=== PATIENT | male | born 1940 | race Caucasian/White ===

== ENCOUNTER 2016-06-30 22:42 | Inpatient (IN) | payer MEDICAID, MEDICARE ==
[2016-06-30] MEDS ORDERED: ACETAMINOPHEN 325 MG TABLET PO STA (23:49)
[2016-06-30] MEDS ORDERED: ACETAMINOPHEN 325 MG TABLET PO ONE (23:54)
[2016-07-01] MEDS ORDERED: CEFEPIME 2 GM in SODIUM CHLORIDE 0.9% MINIBAG 100 ML IV STA (02:27)
[2016-07-01] MEDS ORDERED: VANCOMYCIN INJ 1 GM in SODIUM CHLORIDE 0.9% 250 ML IV STA (02:28)
[2016-07-01] MEDS ORDERED: PROCHLORPERAZINE 10 MG/2 ML VIAL IVP PRN (03:02)
[2016-07-01] MEDS: SODIUM CHLORIDE 0.9% 1,000 ML IV SCH ×2 (05:49→18:55)
[2016-07-01] MEDS: SODIUM CHLORIDE FLUSH 0.9% 10 ML SYRINGE IVP SCH ×3 (05:50→21:00)
[2016-07-01] MEDS: ACETAMINOPHEN 325 MG TABLET PO PRN ×4 (06:50→21:03)
[2016-07-01] MEDS: ALBUTEROL NEB 2.5 MG/3 ML INH PRN ×3 (07:15→21:15)
[2016-07-01] MEDS ORDERED: SULFAMETH/TRIMETH DS 800/160 MG TABLET PO SCH (09:00)
[2016-07-01] MEDS ORDERED: ENOXAPARIN 40 MG/0.4 ML SYRINGE SUBQ SCH (09:00)
[2016-07-01] MEDS: POLYETHYLENE GLYCOL 3350 17 GM PACKET PO SCH (09:48)
[2016-07-01] MEDS: FLUCONAZOLE 100 MG TABLET PO SCH (09:49)
[2016-07-01] MEDS: predniSONE 10 MG TABLET PO SCH (09:49)
[2016-07-01] MEDS: valACYclovir 500 MG TABLET PO SCH ×2 (09:49→20:20)
[2016-07-01] MEDS: SULFAMETH/TRIMETH DS 800/160 MG TABLET PO SCH (09:49)
[2016-07-01] MEDS: VANCOMYCIN INJ 1.75 GM in SODIUM CHLORIDE 0.9% 500 ML IV SCH ×2 (09:56→21:01)
[2016-07-01] MEDS ORDERED: VANCOMYCIN INJ 1.5 GM in SODIUM CHLORIDE 0.9% 500 ML IV SCH (12:00)
[2016-07-01] MEDS: CEFEPIME 2 GM in SODIUM CHLORIDE 0.9% MINIBAG 100 ML IV SCH ×2 (14:13→20:20)
[2016-07-01] MEDS ORDERED: VANCOMYCIN PER PHARMACY 1 GM in SODIUM CHLORIDE 0.9% 250 ML IV SCH (15:00)
[2016-07-01] MEDS ORDERED: METOPROLOL TARTRATE 50 MG TABLET PO SCH (16:00)
[2016-07-01] MEDS ORDERED: A & D OINTMENT 5 GM PACKET TOP ONE (18:00)
[2016-07-01] MEDS: ATENOLOL 25 MG TABLET PO SCH (20:19)
[2016-07-01] MEDS: FLUoxetine 10 MG CAPSULE PO SCH (20:19)
[2016-07-01] MEDS ORDERED: NON FORMULARY MED (Atenolol [Atenolol] 50 MG) PO SCH (21:00)
[2016-07-02] MEDS ORDERED: A & D OINTMENT 5 GM PACKET TOP PRN (00:50)
[2016-07-02] MEDS: ACETAMINOPHEN 325 MG TABLET PO PRN ×2 (01:05→07:09)
[2016-07-02] MEDS: ALBUTEROL NEB 2.5 MG/3 ML INH PRN ×5 (01:40→23:35)
[2016-07-02] MEDS: SODIUM CHLORIDE FLUSH 0.9% 10 ML SYRINGE IVP SCH ×3 (04:52→21:07)
[2016-07-02] MEDS: valACYclovir 500 MG TABLET PO SCH ×2 (08:21→21:05)
[2016-07-02] MEDS: predniSONE 10 MG TABLET PO SCH (08:21)
[2016-07-02] MEDS: CEFEPIME 2 GM in SODIUM CHLORIDE 0.9% MINIBAG 100 ML IV SCH ×2 (08:21→21:06)
[2016-07-02] MEDS: POLYETHYLENE GLYCOL 3350 17 GM PACKET PO SCH (08:21)
[2016-07-02] MEDS: FLUCONAZOLE 100 MG TABLET PO SCH (08:21)
[2016-07-02] MEDS: SULFAMETH/TRIMETH DS 800/160 MG TABLET PO SCH (08:21)
[2016-07-02] MEDS: VANCOMYCIN INJ 1.75 GM in SODIUM CHLORIDE 0.9% 500 ML IV SCH ×2 (10:09→21:46)
[2016-07-02] MEDS: ATENOLOL 25 MG TABLET PO SCH (21:05)
[2016-07-02] MEDS: FLUoxetine 10 MG CAPSULE PO SCH (21:05)
[2016-07-03] MEDS: SODIUM CHLORIDE FLUSH 0.9% 10 ML SYRINGE IVP PRN (00:46)
[2016-07-03] MEDS: SODIUM CHLORIDE FLUSH 0.9% 10 ML SYRINGE IVP SCH ×3 (06:08→21:54)
[2016-07-03] MEDS: CEFEPIME 2 GM in SODIUM CHLORIDE 0.9% MINIBAG 100 ML IV SCH ×2 (08:37→21:52)
[2016-07-03] MEDS: valACYclovir 500 MG TABLET PO SCH ×2 (08:37→21:53)
[2016-07-03] MEDS: FLUCONAZOLE 100 MG TABLET PO SCH (08:37)
[2016-07-03] MEDS: SULFAMETH/TRIMETH DS 800/160 MG TABLET PO SCH (08:38)
[2016-07-03] MEDS: predniSONE 10 MG TABLET PO SCH (08:40)
[2016-07-03] MEDS: POLYETHYLENE GLYCOL 3350 17 GM PACKET PO SCH (09:42)
[2016-07-03] MEDS: VANCOMYCIN INJ 1.75 GM in SODIUM CHLORIDE 0.9% 500 ML IV SCH (11:11)
[2016-07-03] MEDS: ALBUTEROL NEB 2.5 MG/3 ML INH PRN ×2 (11:45→17:15)
[2016-07-03] MEDS: FLUoxetine 10 MG CAPSULE PO SCH (21:53)
[2016-07-03] MEDS: ATENOLOL 25 MG TABLET PO SCH (21:53)
[2016-07-03] MEDS: ALPRAZolam 0.25 MG TABLET PO PRN (21:53)
[2016-07-03] MEDS: VANCOMYCIN INJ 2 GM in SODIUM CHLORIDE 0.9% 500 ML IV SCH (22:30)
[2016-07-04] MEDS: ALBUTEROL NEB 2.5 MG/3 ML INH PRN ×4 (04:50→23:55)
[2016-07-04] MEDS ORDERED: FUROSEMIDE 20 MG/2 ML VIAL IVP SCH (05:00)
[2016-07-04] MEDS: ACETAMINOPHEN 325 MG TABLET PO PRN (05:16)
[2016-07-04] MEDS: SODIUM CHLORIDE FLUSH 0.9% 10 ML SYRINGE IVP SCH ×3 (05:37→20:31)
[2016-07-04] MEDS: CEFEPIME 2 GM in SODIUM CHLORIDE 0.9% MINIBAG 100 ML IV SCH ×2 (09:12→20:30)
[2016-07-04] MEDS: predniSONE 10 MG TABLET PO SCH (09:13)
[2016-07-04] MEDS: FLUCONAZOLE 100 MG TABLET PO SCH (09:13)
[2016-07-04] MEDS: SULFAMETH/TRIMETH DS 800/160 MG TABLET PO SCH (09:13)
[2016-07-04] MEDS: POLYETHYLENE GLYCOL 3350 17 GM PACKET PO SCH (09:14)
[2016-07-04] MEDS: valACYclovir 500 MG TABLET PO SCH ×2 (09:14→20:30)
[2016-07-04] MEDS: FLUoxetine 10 MG CAPSULE PO SCH (20:30)
[2016-07-04] MEDS: ATENOLOL 25 MG TABLET PO SCH (20:30)
[2016-07-04] MEDS: ALPRAZolam 0.25 MG TABLET PO PRN (22:45)
[2016-07-04] MEDS: VANCOMYCIN INJ 2 GM in SODIUM CHLORIDE 0.9% 500 ML IV SCH (22:45)
[2016-07-05] MEDS: SODIUM CHLORIDE FLUSH 0.9% 10 ML SYRINGE IVP PRN (01:12)
[2016-07-05] MEDS: SODIUM CHLORIDE FLUSH 0.9% 10 ML SYRINGE IVP SCH ×3 (06:14→22:04)
[2016-07-05] MEDS: ALBUTEROL NEB 2.5 MG/3 ML INH PRN ×3 (07:35→22:00)
[2016-07-05] MEDS: predniSONE 10 MG TABLET PO SCH (08:49)
[2016-07-05] MEDS: FLUCONAZOLE 100 MG TABLET PO SCH (08:49)
[2016-07-05] MEDS: FUROSEMIDE 20 MG TABLET PO SCH (08:49)
[2016-07-05] MEDS: SULFAMETH/TRIMETH DS 800/160 MG TABLET PO SCH (08:49)
[2016-07-05] MEDS: valACYclovir 500 MG TABLET PO SCH ×2 (08:49→22:03)
[2016-07-05] MEDS: POLYETHYLENE GLYCOL 3350 17 GM PACKET PO SCH (08:50)
[2016-07-05] MEDS: CEFEPIME 2 GM in SODIUM CHLORIDE 0.9% MINIBAG 100 ML IV SCH ×2 (08:50→21:59)
[2016-07-05] MEDS: FUROSEMIDE 40 MG/4 ML VIAL IVP SCH (14:03)
[2016-07-05] MEDS: FLUoxetine 10 MG CAPSULE PO SCH (22:03)
[2016-07-05] MEDS: ATENOLOL 25 MG TABLET PO SCH (22:03)
[2016-07-05] MEDS: VANCOMYCIN INJ 2 GM in SODIUM CHLORIDE 0.9% 500 ML IV SCH (22:54)
[2016-07-06] MEDS: SODIUM CHLORIDE FLUSH 0.9% 10 ML SYRINGE IVP SCH ×3 (05:56→21:34)
[2016-07-06] MEDS: ALBUTEROL NEB 2.5 MG/3 ML INH PRN (07:10)
[2016-07-06] MEDS: CEFEPIME 2 GM in SODIUM CHLORIDE 0.9% MINIBAG 100 ML IV SCH ×2 (08:37→21:29)
[2016-07-06] MEDS: SULFAMETH/TRIMETH DS 800/160 MG TABLET PO SCH (08:42)
[2016-07-06] MEDS: FLUCONAZOLE 100 MG TABLET PO SCH (08:43)
[2016-07-06] MEDS: valACYclovir 500 MG TABLET PO SCH ×2 (08:43→21:29)
[2016-07-06] MEDS: predniSONE 10 MG TABLET PO SCH (08:43)
[2016-07-06] MEDS: FUROSEMIDE 20 MG TABLET PO SCH (08:44)
[2016-07-06] MEDS: POLYETHYLENE GLYCOL 3350 17 GM PACKET PO SCH (08:46)
[2016-07-06] MEDS: FUROSEMIDE 40 MG/4 ML VIAL IVP SCH (08:46)
[2016-07-06] MEDS: ACETAMINOPHEN 325 MG TABLET PO PRN (15:49)
[2016-07-06] MEDS: FLUoxetine 10 MG CAPSULE PO SCH (21:29)
[2016-07-06] MEDS: ATENOLOL 25 MG TABLET PO SCH (21:29)
[2016-07-06] MEDS: VANCOMYCIN INJ 2 GM in SODIUM CHLORIDE 0.9% 500 ML IV SCH (22:40)
[2016-07-07] MEDS: ALBUTEROL NEB 2.5 MG/3 ML INH PRN ×4 (01:10→20:55)
[2016-07-07] MEDS: HYDROcod/ACETAM 5/325 MG TABLET PO PRN ×2 (02:17→09:37)
[2016-07-07] MEDS: SODIUM CHLORIDE FLUSH 0.9% 10 ML SYRINGE IVP SCH ×3 (06:18→21:32)
[2016-07-07] MEDS: FUROSEMIDE 40 MG/4 ML VIAL IVP SCH (07:25)
[2016-07-07] MEDS: CEFEPIME 2 GM in SODIUM CHLORIDE 0.9% MINIBAG 100 ML IV SCH ×2 (09:29→20:49)
[2016-07-07] MEDS: POLYETHYLENE GLYCOL 3350 17 GM PACKET PO SCH (09:30)
[2016-07-07] MEDS: SULFAMETH/TRIMETH DS 800/160 MG TABLET PO SCH (09:32)
[2016-07-07] MEDS: predniSONE 10 MG TABLET PO SCH (09:32)
[2016-07-07] MEDS: FUROSEMIDE 20 MG TABLET PO SCH (09:33)
[2016-07-07] MEDS: FLUCONAZOLE 100 MG TABLET PO SCH (09:33)
[2016-07-07] MEDS: valACYclovir 500 MG TABLET PO SCH ×2 (09:33→20:49)
[2016-07-07] MEDS: FLUoxetine 10 MG CAPSULE PO SCH (20:49)
[2016-07-07] MEDS: ATENOLOL 25 MG TABLET PO SCH (20:49)
[2016-07-07] MEDS: VANCOMYCIN INJ 2 GM in SODIUM CHLORIDE 0.9% 500 ML IV SCH (21:32)
[2016-07-08] MEDS: HYDROcod/ACETAM 5/325 MG TABLET PO PRN ×3 (05:50→21:33)
[2016-07-08] MEDS: SODIUM CHLORIDE FLUSH 0.9% 10 ML SYRINGE IVP SCH ×3 (05:50→21:36)
[2016-07-08] MEDS: FUROSEMIDE 40 MG/4 ML VIAL IVP SCH (07:17)
[2016-07-08] MEDS: FUROSEMIDE 20 MG TABLET PO SCH (08:23)
[2016-07-08] MEDS: valACYclovir 500 MG TABLET PO SCH ×2 (08:24→21:33)
[2016-07-08] MEDS: SULFAMETH/TRIMETH DS 800/160 MG TABLET PO SCH (08:24)
[2016-07-08] MEDS: predniSONE 10 MG TABLET PO SCH (08:24)
[2016-07-08] MEDS: FLUCONAZOLE 100 MG TABLET PO SCH (08:24)
[2016-07-08] MEDS: POLYETHYLENE GLYCOL 3350 17 GM PACKET PO SCH (08:29)
[2016-07-08] MEDS: CEFEPIME 2 GM in SODIUM CHLORIDE 0.9% MINIBAG 100 ML IV SCH ×2 (08:31→21:29)
[2016-07-08] MEDS: ALBUTEROL NEB 2.5 MG/3 ML INH PRN (21:10)
[2016-07-08] MEDS: FLUoxetine 10 MG CAPSULE PO SCH (21:32)
[2016-07-08] MEDS: ATENOLOL 25 MG TABLET PO SCH (21:33)
[2016-07-08] MEDS: VANCOMYCIN INJ 2 GM in SODIUM CHLORIDE 0.9% 500 ML IV SCH (21:36)
[2016-07-09] MEDS: HYDROcod/ACETAM 5/325 MG TABLET PO PRN ×2 (04:09→16:34)
[2016-07-09] MEDS: SODIUM CHLORIDE FLUSH 0.9% 10 ML SYRINGE IVP SCH ×3 (06:23→23:14)
[2016-07-09] MEDS: CEFEPIME 2 GM in SODIUM CHLORIDE 0.9% MINIBAG 100 ML IV SCH ×2 (09:27→23:14)
[2016-07-09] MEDS: POLYETHYLENE GLYCOL 3350 17 GM PACKET PO SCH (09:29)
[2016-07-09] MEDS: predniSONE 10 MG TABLET PO SCH (09:30)
[2016-07-09] MEDS: FUROSEMIDE 20 MG TABLET PO SCH (09:30)
[2016-07-09] MEDS: FLUCONAZOLE 100 MG TABLET PO SCH (09:30)
[2016-07-09] MEDS: valACYclovir 500 MG TABLET PO SCH ×2 (09:31→22:17)
[2016-07-09] MEDS: SULFAMETH/TRIMETH DS 800/160 MG TABLET PO SCH (09:32)
[2016-07-09] MEDS: FUROSEMIDE 40 MG/4 ML VIAL IVP SCH (10:03)
[2016-07-09] MEDS: ALBUTEROL NEB 2.5 MG/3 ML INH PRN (20:16)
[2016-07-09] MEDS: FLUoxetine 10 MG CAPSULE PO SCH (22:17)
[2016-07-09] MEDS: ATENOLOL 25 MG TABLET PO SCH (22:17)
[2016-07-09] MEDS: VANCOMYCIN INJ 2 GM in SODIUM CHLORIDE 0.9% 500 ML IV SCH (23:54)
[2016-07-10] MEDS: POLYETHYLENE GLYCOL 3350 17 GM PACKET PO SCH (10:32)
[2016-07-10] MEDS: CEFEPIME 2 GM in SODIUM CHLORIDE 0.9% MINIBAG 100 ML IV SCH (10:34)
[2016-07-10] MEDS: SODIUM CHLORIDE FLUSH 0.9% 10 ML SYRINGE IVP SCH ×2 (10:35)
[2016-07-10] MEDS: FLUCONAZOLE 100 MG TABLET PO SCH (10:40)
[2016-07-10] MEDS: predniSONE 10 MG TABLET PO SCH (10:41)
[2016-07-10] MEDS: SULFAMETH/TRIMETH DS 800/160 MG TABLET PO SCH (10:41)
[2016-07-10] MEDS: valACYclovir 500 MG TABLET PO SCH (10:41)
[2016-07-10] MEDS: FUROSEMIDE 20 MG TABLET PO SCH (10:45)
[2016-07-10] MEDS: ACETAMINOPHEN 325 MG TABLET PO PRN (10:45)
[2016-07-10] MEDS: FUROSEMIDE 40 MG/4 ML VIAL IVP SCH (10:47)
== END 2016-07-10 12:30 | disposition home or self-care (01) | DRG 808 ==
PROC: 30233N1 Transfusion of Nonautologous Red Blood Cells into Peripheral Vein, Percutaneous Approach (ICD-10-PCS; principal; 2016-07-06)
DX: D70.9 Neutropenia, unspecified (principal); J18.9 Pneumonia, unspecified organism; I10 Essential (primary) hypertension; Z68.41 Body mass index [BMI] 40.0-44.9, adult; R50.81 Fever presenting with conditions classified elsewhere; Y95 Nosocomial condition; D46.21 Refractory anemia with excess of blasts 1; R60.0 Localized edema; I48.91 Unspecified atrial fibrillation; M25.531 Pain in right wrist; K11.21 Acute sialoadenitis; R09.02 Hypoxemia; D46.9 Myelodysplastic syndrome, unspecified; I49.9 Cardiac arrhythmia, unspecified; F41.0 Panic disorder [episodic paroxysmal anxiety]; F42.9 Obsessive-compulsive disorder, unspecified; F41.8 Other specified anxiety disorders; E66.01 Morbid (severe) obesity due to excess calories; G89.29 Other chronic pain; Z79.899 Other long term (current) drug therapy; Z87.891 Personal history of nicotine dependence; Z79.52 Long term (current) use of systemic steroids; Z79.2 Long term (current) use of antibiotics

== ENCOUNTER 2016-07-31 07:36 | Day surgery (SDC) | payer MEDICARE ==
[2016-07-31] MEDS ORDERED: LACTATED RINGERS 1,000 ML IV ONE (07:48)
[2016-07-31] MEDS ORDERED: LIDOCAINE 1% 50 ML MDV SUBQ ONE ×2 (12:33)
[2016-07-31] MEDS ORDERED: BUPIVACAINE 0.5% PF 30 ML VIAL SUBQ ONE ×2 (12:33)
[2016-07-31] MEDS ORDERED: PHENYLEPHRINE 50 MG/5 ML VIAL IV ONE (13:33)
[2016-07-31] MEDS ORDERED: MIDAZOLAM 2 MG/2 ML VIAL IVP ONE (13:33)
[2016-07-31] MEDS ORDERED: PROPOFOL 200 MG/20 ML VIAL IVP ONE (13:33)
[2016-07-31] MEDS ORDERED: METOCLOPRAMIDE 10 MG/2 ML VIAL IVP ONE (13:33)
[2016-07-31] MEDS ORDERED: LIDOCAINE-MPF 2% 5 ML VIAL IM ONE (13:33)
== END 2016-07-31 07:37 | disposition home or self-care (01) ==
PROC: 05HN33Z Insertion of Infusion Device into Left Internal Jugular Vein, Percutaneous Approach (ICD-10-PCS; 2016-07-31)
PROC: B514YZA Fluoroscopy of Left Jugular Veins using Other Contrast, Guidance (ICD-10-PCS; 2016-07-31)
PROC: 0JH63XZ Insertion of Tunneled Vascular Access Device into Chest Subcutaneous Tissue and Fascia, Percutaneous Approach (ICD-10-PCS; principal; 2016-07-31 08:45)
DX: D46.9 Myelodysplastic syndrome, unspecified (principal); Z88.5 Allergy status to narcotic agent; Z79.52 Long term (current) use of systemic steroids; Z87.891 Personal history of nicotine dependence; I11.0 Hypertensive heart disease with heart failure; I50.9 Heart failure, unspecified; E66.9 Obesity, unspecified; K21.9 Gastro-esophageal reflux disease without esophagitis
CPT/HCPCS: 36561; 71010; C1788; J7120

== ENCOUNTER 2016-08-04 18:54 | Inpatient (IN) | payer MEDICARE ==
[2016-08-04] MEDS ORDERED: SODIUM CHLORIDE 0.9% 1,000 ML IV ONE (19:17)
[2016-08-04] MEDS ORDERED: PIPERACILLIN/TAZOBACTAM 4.5 GM in SODIUM CHLORIDE 0.9% MINIBAG 100 ML IV STA (19:18)
[2016-08-04] MEDS ORDERED: VANCOMYCIN INJ 1 GM in SODIUM CHLORIDE 0.9% 250 ML IV STA (19:18)
[2016-08-04] MEDS ORDERED: ONDANSETRON 4 MG/2 ML VIAL IVP PRN (21:27)
[2016-08-04] MEDS ORDERED: ONDANSETRON ODT 4 MG TABLET TL PRN (21:27)
[2016-08-04] MEDS ORDERED: PROCHLORPERAZINE INJ 10 MG in SODIUM CHLORIDE 0.9% 50 ML IV PRN (21:32)
[2016-08-04] MEDS ORDERED: VANCOMYCIN 1 GM VIAL ONE (21:33)
[2016-08-04] MEDS ORDERED: VANCOMYCIN PER PHARMACY 1 GM in SODIUM CHLORIDE 0.9% 250 ML IV SCH (22:00)
[2016-08-04] MEDS: ACETAMINOPHEN 325 MG TABLET PO PRN (22:51)
[2016-08-04] MEDS ORDERED: VANCOMYCIN IV SCH (23:00)
[2016-08-04] MEDS ORDERED: SODIUM CHLORIDE 0.9% IV SCH (23:00)
[2016-08-04] MEDS: SODIUM CHLORIDE FLUSH 0.9% 10 ML SYRINGE IVP SCH (23:32)
[2016-08-05] MEDS: SODIUM CHLORIDE 0.9% 1,000 ML IV SCH ×3 (00:03→20:42)
[2016-08-05] MEDS: PIPERACILLIN/TAZOBACTAM 3.375 GM in SODIUM CHLORIDE 0.9% MINIBAG 100 ML IV SCH ×3 (01:35→12:42)
[2016-08-05] MEDS: SODIUM CHLORIDE FLUSH 0.9% 10 ML SYRINGE IVP SCH ×3 (07:09→20:49)
[2016-08-05] MEDS: POLYETHYLENE GLYCOL 3350 17 GM PACKET PO SCH (08:50)
[2016-08-05] MEDS: FLUCONAZOLE 100 MG TABLET PO SCH (08:51)
[2016-08-05] MEDS: FUROSEMIDE 20 MG TABLET PO SCH (08:51)
[2016-08-05] MEDS: VANCOMYCIN INJ 1 GM, VANCOMYCIN INJ 500 MG in SODIUM CHLORIDE 0.9% 500 ML IV SCH ×2 (08:52→20:42)
[2016-08-05] MEDS: valACYclovir 500 MG TABLET PO SCH ×2 (08:53→20:43)
[2016-08-05] MEDS: SULFAMETH/TRIMETH DS 800/160 MG TABLET PO SCH (12:41)
[2016-08-05] MEDS: ACETAMINOPHEN 325 MG TABLET PO PRN (16:33)
[2016-08-05] MEDS: ATENOLOL 25 MG TABLET PO SCH (20:43)
[2016-08-05] MEDS: FLUoxetine 10 MG CAPSULE PO SCH (20:43)
[2016-08-06] MEDS: HYDROmorphone 1 MG/ML SYRINGE IVP PRN ×3 (01:01→22:47)
[2016-08-06] MEDS: SODIUM CHLORIDE FLUSH 0.9% 10 ML SYRINGE IVP SCH ×3 (06:37→20:39)
[2016-08-06] MEDS: POLYETHYLENE GLYCOL 3350 17 GM PACKET PO SCH (08:47)
[2016-08-06] MEDS: FUROSEMIDE 20 MG TABLET PO SCH (08:48)
[2016-08-06] MEDS: SULFAMETH/TRIMETH DS 800/160 MG TABLET PO SCH (08:48)
[2016-08-06] MEDS: FLUCONAZOLE 100 MG TABLET PO SCH (08:48)
[2016-08-06] MEDS: valACYclovir 500 MG TABLET PO SCH ×2 (08:48→20:37)
[2016-08-06] MEDS: VANCOMYCIN INJ 1 GM, VANCOMYCIN INJ 500 MG in SODIUM CHLORIDE 0.9% 500 ML IV SCH ×2 (09:19→20:36)
[2016-08-06] MEDS: SODIUM CHLORIDE FLUSH 0.9% 10 ML SYRINGE IVP PRN (16:35)
[2016-08-06] MEDS: FLUoxetine 10 MG CAPSULE PO SCH (20:37)
[2016-08-06] MEDS: ATENOLOL 25 MG TABLET PO SCH (20:37)
[2016-08-07] MEDS: SODIUM CHLORIDE FLUSH 0.9% 10 ML SYRINGE IVP SCH ×3 (06:42→21:42)
[2016-08-07] MEDS: VANCOMYCIN INJ 1 GM, VANCOMYCIN INJ 500 MG in SODIUM CHLORIDE 0.9% 500 ML IV SCH ×2 (08:54→23:21)
[2016-08-07] MEDS: valACYclovir 500 MG TABLET PO SCH ×2 (08:58→21:42)
[2016-08-07] MEDS: SULFAMETH/TRIMETH DS 800/160 MG TABLET PO SCH (08:59)
[2016-08-07] MEDS: FLUCONAZOLE 100 MG TABLET PO SCH (08:59)
[2016-08-07] MEDS: POLYETHYLENE GLYCOL 3350 17 GM PACKET PO SCH (09:00)
[2016-08-07] MEDS: FUROSEMIDE 20 MG TABLET PO SCH (09:02)
[2016-08-07] MEDS: ACETAMINOPHEN 325 MG TABLET PO PRN (09:22)
[2016-08-07] MEDS: HYDROmorphone 1 MG/ML SYRINGE IVP PRN (09:23)
[2016-08-07] MEDS: SODIUM CHLORIDE FLUSH 0.9% 10 ML SYRINGE IVP PRN ×2 (09:25→23:21)
[2016-08-07] MEDS ORDERED: SODIUM CHLORIDE 0.9% 250 ML IV ONE (14:16)
[2016-08-07] MEDS: oxyCODONE 5 MG TABLET PO PRN ×2 (19:29→23:21)
[2016-08-07] MEDS: ATENOLOL 25 MG TABLET PO SCH (21:42)
[2016-08-07] MEDS: FLUoxetine 10 MG CAPSULE PO SCH (21:42)
[2016-08-08] MEDS: SODIUM CHLORIDE FLUSH 0.9% 10 ML SYRINGE IVP SCH ×3 (06:27→20:29)
[2016-08-08] MEDS ORDERED: BUFFERED LIDOCAINE 10 ML SYRINGE SUBQ STA (07:33)
[2016-08-08] MEDS: HYDROmorphone 1 MG/ML SYRINGE IVP PRN ×2 (08:31→15:45)
[2016-08-08] MEDS: SODIUM CHLORIDE FLUSH 0.9% 10 ML SYRINGE IVP PRN ×3 (08:31→20:29)
[2016-08-08] MEDS: VANCOMYCIN INJ 1 GM, VANCOMYCIN INJ 500 MG in SODIUM CHLORIDE 0.9% 500 ML IV SCH ×2 (09:22→20:29)
[2016-08-08] MEDS: FUROSEMIDE 20 MG TABLET PO SCH (09:28)
[2016-08-08] MEDS: FLUCONAZOLE 100 MG TABLET PO SCH (09:28)
[2016-08-08] MEDS: SULFAMETH/TRIMETH DS 800/160 MG TABLET PO SCH (09:28)
[2016-08-08] MEDS: valACYclovir 500 MG TABLET PO SCH ×2 (09:29→20:29)
[2016-08-08] MEDS: POLYETHYLENE GLYCOL 3350 17 GM PACKET PO SCH (09:48)
[2016-08-08] MEDS: oxyCODONE 5 MG TABLET PO PRN (14:26)
[2016-08-08] MEDS: ATENOLOL 25 MG TABLET PO SCH (20:29)
[2016-08-08] MEDS: FLUoxetine 10 MG CAPSULE PO SCH (20:29)
[2016-08-09] MEDS: ACETAMINOPHEN 325 MG TABLET PO PRN (01:25)
[2016-08-09] MEDS: HYDROmorphone 1 MG/ML SYRINGE IVP PRN ×2 (02:31→21:14)
[2016-08-09] MEDS: SODIUM CHLORIDE FLUSH 0.9% 10 ML SYRINGE IVP SCH ×3 (05:50→23:17)
[2016-08-09] MEDS: FUROSEMIDE 20 MG/2 ML VIAL IVP SCH (08:48)
[2016-08-09] MEDS: valACYclovir 500 MG TABLET PO SCH ×2 (08:52→21:14)
[2016-08-09] MEDS: FLUCONAZOLE 100 MG TABLET PO SCH (08:53)
[2016-08-09] MEDS: SULFAMETH/TRIMETH DS 800/160 MG TABLET PO SCH (08:53)
[2016-08-09] MEDS: VANCOMYCIN INJ 1 GM, VANCOMYCIN INJ 500 MG in SODIUM CHLORIDE 0.9% 500 ML IV SCH ×2 (08:54→21:16)
[2016-08-09] MEDS: POLYETHYLENE GLYCOL 3350 17 GM PACKET PO SCH (08:55)
[2016-08-09] MEDS: oxyCODONE 5 MG TABLET PO PRN (13:44)
[2016-08-09] MEDS: ATENOLOL 25 MG TABLET PO SCH (21:14)
[2016-08-09] MEDS: FLUoxetine 10 MG CAPSULE PO SCH (21:14)
[2016-08-10] MEDS: HYDROmorphone 1 MG/ML SYRINGE IVP PRN ×2 (00:01→21:30)
[2016-08-10] MEDS: SODIUM CHLORIDE FLUSH 0.9% 10 ML SYRINGE IVP SCH ×3 (06:59→20:36)
[2016-08-10] MEDS: FUROSEMIDE 20 MG/2 ML VIAL IVP SCH (09:08)
[2016-08-10] MEDS: VANCOMYCIN INJ 1 GM, VANCOMYCIN INJ 500 MG in SODIUM CHLORIDE 0.9% 500 ML IV SCH ×2 (09:08→20:36)
[2016-08-10] MEDS: FLUCONAZOLE 100 MG TABLET PO SCH (09:08)
[2016-08-10] MEDS: valACYclovir 500 MG TABLET PO SCH ×2 (09:08→20:36)
[2016-08-10] MEDS: SULFAMETH/TRIMETH DS 800/160 MG TABLET PO SCH (09:08)
[2016-08-10] MEDS: POLYETHYLENE GLYCOL 3350 17 GM PACKET PO SCH (09:09)
[2016-08-10] MEDS: SODIUM CHLORIDE FLUSH 0.9% 10 ML SYRINGE IVP PRN (09:10)
[2016-08-10] MEDS: FLUoxetine 10 MG CAPSULE PO SCH (20:34)
[2016-08-10] MEDS: ATENOLOL 25 MG TABLET PO SCH (20:35)
[2016-08-11] MEDS: SODIUM CHLORIDE FLUSH 0.9% 10 ML SYRINGE IVP SCH ×3 (06:04→21:04)
[2016-08-11] MEDS: PANTOPRAZOLE 40 MG TABLET PO SCH (06:04)
[2016-08-11] MEDS ORDERED: DOCUSATE SODIUM 250 MG CAPSULE PO SCH (09:00)
[2016-08-11] MEDS ORDERED: SENNA 8.6 MG TABLET PO SCH (09:00)
[2016-08-11] MEDS: FLUCONAZOLE 100 MG TABLET PO SCH (10:53)
[2016-08-11] MEDS: SULFAMETH/TRIMETH DS 800/160 MG TABLET PO SCH (10:54)
[2016-08-11] MEDS: valACYclovir 500 MG TABLET PO SCH ×2 (10:55→21:01)
[2016-08-11] MEDS: FUROSEMIDE 20 MG/2 ML VIAL IVP SCH (10:56)
[2016-08-11] MEDS: SODIUM CHLORIDE FLUSH 0.9% 10 ML SYRINGE IVP PRN ×3 (10:56→21:03)
[2016-08-11] MEDS: POLYETHYLENE GLYCOL 3350 17 GM PACKET PO SCH (11:51)
[2016-08-11] MEDS: oxyCODONE 5 MG TABLET PO PRN (12:02)
[2016-08-11] MEDS: ALPRAZolam 0.25 MG TABLET PO PRN (12:44)
[2016-08-11] MEDS: VANCOMYCIN INJ 1 GM, VANCOMYCIN INJ 500 MG in SODIUM CHLORIDE 0.9% 500 ML IV SCH ×2 (15:31→21:01)
[2016-08-11] MEDS: ATENOLOL 25 MG TABLET PO SCH (20:57)
[2016-08-11] MEDS: HYDROmorphone 1 MG/ML SYRINGE IVP PRN (20:57)
[2016-08-11] MEDS: FLUoxetine 10 MG CAPSULE PO SCH (21:01)
[2016-08-12] MEDS: SODIUM CHLORIDE FLUSH 0.9% 10 ML SYRINGE IVP SCH ×3 (06:35→21:57)
[2016-08-12] MEDS: PANTOPRAZOLE 40 MG TABLET PO SCH (06:35)
[2016-08-12] MEDS: SODIUM CHLORIDE FLUSH 0.9% 10 ML SYRINGE IVP PRN (06:38)
[2016-08-12] MEDS: VANCOMYCIN INJ 1 GM, VANCOMYCIN INJ 500 MG in SODIUM CHLORIDE 0.9% 500 ML IV SCH ×2 (08:47→20:39)
[2016-08-12] MEDS: FUROSEMIDE 20 MG/2 ML VIAL IVP SCH (08:48)
[2016-08-12] MEDS: SULFAMETH/TRIMETH DS 800/160 MG TABLET PO SCH (08:51)
[2016-08-12] MEDS: valACYclovir 500 MG TABLET PO SCH ×2 (08:51→20:39)
[2016-08-12] MEDS: FLUCONAZOLE 100 MG TABLET PO SCH (08:51)
[2016-08-12] MEDS: HYDROmorphone 1 MG/ML SYRINGE IVP PRN ×2 (10:35→20:39)
[2016-08-12] MEDS: ATENOLOL 25 MG TABLET PO SCH (20:36)
[2016-08-12] MEDS: FLUoxetine 10 MG CAPSULE PO SCH (20:39)
[2016-08-13] MEDS: PANTOPRAZOLE 40 MG TABLET PO SCH (05:27)
[2016-08-13] MEDS: HYDROmorphone 1 MG/ML SYRINGE IVP PRN ×2 (05:27→10:29)
[2016-08-13] MEDS: SODIUM CHLORIDE FLUSH 0.9% 10 ML SYRINGE IVP SCH ×3 (05:28→21:24)
[2016-08-13] MEDS: FUROSEMIDE 20 MG/2 ML VIAL IVP SCH (09:57)
[2016-08-13] MEDS: SULFAMETH/TRIMETH DS 800/160 MG TABLET PO SCH (09:57)
[2016-08-13] MEDS: valACYclovir 500 MG TABLET PO SCH ×2 (09:57→19:59)
[2016-08-13] MEDS: FLUCONAZOLE 100 MG TABLET PO SCH (09:57)
[2016-08-13] MEDS: FLUoxetine 10 MG CAPSULE PO SCH (19:59)
[2016-08-13] MEDS: HYDROcod/ACETAM 5/325 MG TABLET PO PRN (20:00)
[2016-08-13] MEDS: ATENOLOL 25 MG TABLET PO SCH (20:07)
[2016-08-13] MEDS ORDERED: HYDROmorphone 1 MG/ML SYRINGE IVP PRN (20:21)
[2016-08-13] MEDS ORDERED: ALTEPLASE 2 MG VIAL IC PRN (22:42)
[2016-08-14] MEDS: HYDROcod/ACETAM 5/325 MG TABLET PO PRN ×2 (01:01→09:54)
[2016-08-14] MEDS: SODIUM CHLORIDE FLUSH 0.9% 10 ML SYRINGE IVP PRN ×3 (02:00→11:41)
[2016-08-14] MEDS: SODIUM CHLORIDE FLUSH 0.9% 10 ML SYRINGE IVP SCH (06:31)
[2016-08-14] MEDS: PANTOPRAZOLE 40 MG TABLET PO SCH (06:32)
[2016-08-14] MEDS: SULFAMETH/TRIMETH DS 800/160 MG TABLET PO SCH (08:20)
[2016-08-14] MEDS: FUROSEMIDE 20 MG/2 ML VIAL IVP SCH (08:20)
[2016-08-14] MEDS: FLUCONAZOLE 100 MG TABLET PO SCH (08:20)
[2016-08-14] MEDS: valACYclovir 500 MG TABLET PO SCH (08:20)
[2016-08-14] MEDS ORDERED: VANCOMYCIN INJ 1 GM, VANCOMYCIN INJ 500 MG in SODIUM CHLORIDE 0.9% 500 ML IV SCH (09:00)
[2016-08-14] MEDS: ALPRAZolam 0.25 MG TABLET PO PRN (09:25)
== END 2016-08-14 12:02 | DRG 314 ==
PROC: 30233N1 Transfusion of Nonautologous Red Blood Cells into Peripheral Vein, Percutaneous Approach (ICD-10-PCS; 2016-08-07)
PROC: 02PY33Z Removal of Infusion Device from Great Vessel, Percutaneous Approach (ICD-10-PCS; 2016-08-08)
PROC: 0H94XZZ Drainage of Neck Skin, External Approach (ICD-10-PCS; 2016-08-10)
PROC: 02HV33Z Insertion of Infusion Device into Superior Vena Cava, Percutaneous Approach (ICD-10-PCS; principal; 2016-08-11)
DX: T80.211A Bloodstream infection due to central venous catheter, initial encounter (principal); J18.9 Pneumonia, unspecified organism; D46.9 Myelodysplastic syndrome, unspecified; L03.313 Cellulitis of chest wall; E66.9 Obesity, unspecified; Z95.828 Presence of other vascular implants and grafts; L03.221 Cellulitis of neck; Z68.41 Body mass index [BMI] 40.0-44.9, adult; B95.7 Other staphylococcus as the cause of diseases classified elsewhere; Y71.1 Therapeutic (nonsurgical) and rehabilitative cardiovascular devices associated with adverse incidents; Y84.8 Other medical procedures as the cause of abnormal reaction of the patient, or of later complication, without mention of misadventure at the time of the procedure; Z16.11 Resistance to penicillins; D70.9 Neutropenia, unspecified; R50.81 Fever presenting with conditions classified elsewhere; L23.1 Allergic contact dermatitis due to adhesives; D46.20 Refractory anemia with excess of blasts, unspecified; R09.02 Hypoxemia; I10 Essential (primary) hypertension; E66.01 Morbid (severe) obesity due to excess calories; I27.2 Other secondary pulmonary hypertension; G47.30 Sleep apnea, unspecified; I48.91 Unspecified atrial fibrillation; J44.9 Chronic obstructive pulmonary disease, unspecified; M19.92 Post-traumatic osteoarthritis, unspecified site; F41.0 Panic disorder [episodic paroxysmal anxiety]; F41.8 Other specified anxiety disorders; F42.9 Obsessive-compulsive disorder, unspecified; Y95 Nosocomial condition; Z66 Do not resuscitate; Z87.891 Personal history of nicotine dependence; Z79.899 Other long term (current) drug therapy; Z88.8 Allergy status to other drugs, medicaments and biological substances; Z91.81 History of falling; Z79.2 Long term (current) use of antibiotics

== ENCOUNTER 2016-11-29 09:54 | Outpatient (CLI) | payer MEDICARE, MEDICAID ==
--- NOTE | 2016-11-29 10:44 | XRAY Report ---
CHEST PA AND LATERAL: 11/29/2016 CLINICAL HISTORY: A 75-year-old male with continuous cough, denies blood in sputum. The patient also has pancytopenia. FINDINGS: The bony thorax demonstrates no significant abnormality. The heart and great vessels demonstrates borderline heart size with vascular calcification in the aor tic arch. A PICC line is seen in place with its tip in the superior vena cava. It enters the vascular system via the right antecubital vein. The pulmonary parenchyma demonstrates improvement as compared to prior CT exam from 08/05/2016. On th e prior CT exam, there were moderate-sized parenchymal densities within the right upper lobe, right l ower lobe and left upper lobe suggestive of potential infectious process. On today's exam, these opac ities are not apparent. There is some mild nonspecific interstitial parenchymal disease in the right lower lobe that may represent mild atelectasis. Secondary consideration is a mild pneumonia. There ar e circular densities seen superimposed over the left lower lobe that probably are artifacts and repre sent structures superimposed over this area. IMPRESSION: 1. BORDERLINE HEART SIZE. 2. PICC LINE IS NOTED IN PLACE WITH ITS TIP IN THE SUPERIOR VENA CAVA. 3. IMPROVEMENT IS NOTED IN THE LUNGS COMPARED TO PATIENT'S PRIOR CT EXAM OF 08/05/2016. THE PREVIO USLY NOTED BILATERAL MODERATE-SIZED LUNG OPACITIES ARE NOT EVIDENT. 4. MILD INTERSTITIAL PARENCHYMAL DISEASE IS SEEN IN THE RIGHT LOWER LOBE. THIS IS NONSPECIFIC. IT MAY REPRESENT MILD ATELECTASIS VERSUS A MILD BRONCHOPNEUMONIA. RECOMMEND CLINICAL CORRELATION. COMMENT: FAXED REPORT WAS SENT BY DR. GONZALEZ ON 11/29/2016 AT 10:30 AM. JOB #: [id number] EXT JOB #:[id number]
== END 2016-11-29 09:55 | disposition home or self-care (01) ==
LOC: DI 09:54
PROVIDERS: ATTEND Internal Medicine
DX: J98.4 Other disorders of lung (principal); D61.818 Other pancytopenia
CPT/HCPCS: 71020

== ENCOUNTER 2016-12-08 13:18 | Outpatient (CLI) | payer MEDICARE, MEDICAID | END 2016-12-08 13:19 | disposition home or self-care (01) | LOC: LAB 13:18 | PROVIDERS: ATTEND Ophthalmology | DX: H25.811 Combined forms of age-related cataract, right eye (principal) | CPT/HCPCS: 87640 ==

== ENCOUNTER 2016-12-14 08:19 | Day surgery (SDC) | payer OTHER ==
[2016-12-14] MEDS ORDERED: LACTATED RINGERS 500 ML IV ONE (08:26)
[2016-12-14] MEDS ORDERED: SODIUM CHLORIDE FLUSH 0.9% 10 ML SYRINGE IVP ONE (08:53)
[2016-12-14] MEDS ORDERED: PHENYLEPHRINE 2.5% OPHTH 2 ML DROPS OPTH ONE (08:55)
[2016-12-14] MEDS ORDERED: KETOROLAC 0.45% OPHTH DROPS OPTH ONE (08:55)
[2016-12-14] MEDS ORDERED: CYCLOPENTOLATE 1% OPHTH DROPS 2 ML OPTH ONE (08:55)
[2016-12-14] MEDS ORDERED: PROPARACAINE 0.5% OPHTH DROPS 15 ML OPTH ONE ×2 (08:55→09:55)
[2016-12-14] MEDS ORDERED: IPRATROPIUM/ALBUTEROL 3 ML NEB INH ONE (09:22)
[2016-12-14] MEDS ORDERED: BRIMONIDINE 0.2% OPHTH DROPS 5 ML ONE (09:25)
[2016-12-14] MEDS ORDERED: TIMOLOL 0.5% OPHTH DROPS ONE (09:25)
[2016-12-14] MEDS ORDERED: KETOROLAC 0.45% OPHTH DROPS ONE (09:25)
[2016-12-14] MEDS ORDERED: PROPARACAINE 0.5% OPHTH DROPS 15 ML ONE (09:26)
[2016-12-14] MEDS ORDERED: PHENYLEPHRINE 2.5% OPHTH 2 ML DROPS ONE (09:26)
[2016-12-14] MEDS ORDERED: CYCLOPENTOLATE 1% OPHTH DROPS 2 ML ONE (09:26)
[2016-12-14] MEDS ORDERED: TRYPAN BLUE 0.5 ML SYRINGE IO ONE ×2 (09:40→09:55)
[2016-12-14] MEDS ORDERED: MIDAZOLAM 2 MG/2 ML VIAL IVP ONE (09:50)
[2016-12-14] MEDS ORDERED: EPINEPHrine 1 MG/ML AMP IVP ONE (09:55)
[2016-12-14] MEDS ORDERED: CHONDR SULF/HYALURONATE SYRINGE IO ONE ×3 (09:55)
[2016-12-14] MEDS ORDERED: BRIMONIDINE 0.2% OPHTH DROPS 5 ML OPTH ONE (09:55)
[2016-12-14] MEDS ORDERED: BSS/LIDOCAINE/EPINEPHRINE 1 ML SYRINGE IO ONE (09:56)
[2016-12-14] MEDS ORDERED: TRIAMCIN/MOXIFLOX/VANCO 1 ML VIAL IO ONE (09:56)
[2016-12-14] MEDS ORDERED: ACETYLCHOLINE 20 MG/2 ML KIT IO ONE ×2 (10:24→10:25)
[2016-12-14 11:00] VITALS: BP 138/66
--- NOTE | 2016-12-14 13:11 | OPERATIVE REPORT ---
DATE OF SURGERY: 12/14/2016 00:00:00 PREOPERATIVE DIAGNOSIS: Visually significant cataract, right eye. This is his first cataract surgery. This was a complex surgery due to a small pupil requiring expansion with the Malyugin ring and the use of Trypan Blue to stain the capsule. POSTOPERATIVE DIAGNOSIS: Visually significant cataract, right eye. This is his first cataract surgery. This was a complex surgery due to a small pupil requiring expansion with the Malyugin ring and the use of Trypan Blue to stain the capsule. NAME OF PROCEDURE: Phacoemulsification and postoperative chamber intraocular lens implant, right eye. SURGEON: Damien Wilson MD ANESTHESIA: Monitored anesthesia care. COMPLICATIONS: Posterior capsular rupture about 80% [address] the way through phaco fragmentation of the very dense lens nucleus. There was minimal dry vitrectomy from a small amount of vitreous coming to the wound towards the end of the case. OPERATIVE INDICATIONS: This is a 76-year-old leonides with progressive vision loss in the right eye due to a mature brunescent nuclear cataract. Best corrected vision was light perception vision in the right eye. INDICATIONS FOR SURGERY: Overall decrease in vision, difficulty seeing the computer screen, difficulty reading, difficulty seeing the TV, inability to read street signs, inability to drive at night, difficulty with headlights from vehicles at night and difficulty with glare and bright lights in any situation. He was consented at length concerning risks and benefits of cataract surgery, after which he expressed a desire to proceed with surgery. OPERATIVE PROCEDURE: The patient was taken into OR #2 and placed under monitored anesthesia care. A surgical time-out was conducted confirming correct patient, correct procedure and correct surgical site. Of note, this is a very large man with myelodysplastic syndrome and on continuous O2 with a rather robust and steady cough, but was able to at least lie flat during surgery. He also has a very dense lens. He was given topical anesthesia and prepped and draped in the usual sterile fashion. The eye was entered at the 12 and 9 o' clock positions. Intracameral Shugarcaine was injected into the anterior chamber followed by Viscoat. A Malyugin ring was then inserted into the anterior chamber and engaged the pupil margin at 4 points to expand the pupil. Trypan Blue was then injected along the anterior capsule to stain the capsule for the capsulorrhexis. Once stained, the rest of the Trypan Blue was flushed out of the anterior chamber and more Viscoat was placed into the anterior chamber to refill the chamber. Once stained, a continuous tear curvilinear capsulorrhexis was performed through the anterior capsule. The nucleus was hydrodissected and phacoemulsified. Of note, lens fragmentation was very tedious as this was a very dense, calcified lens and required minute chops and phacoemulsification. With about 80% of this very hard nucleus phacoemulsified, there was a break in the posterior capsule. It was round and small. Vitreous was pushed back with copious viscoelastic and the rest of the nucleus was phacoemulsified. Since the hole was small and round in the posterior capsule, I filled the capsule with Provisc and injected a one-piece IOL. There was some difficulty with positioning the IOL and during positioning the IOL cocked over and started to head towards the retina, at which point I levitated the IOL into the anterior chamber using micrograspers. The IOL was cut in half using microscissors and removed from the anterior chamber. At this point I filled the sulcus with Provisc and injected a 3-piece IOL, which was 20.5 diopters, into the sulcus and positioned it in the sulcus. No vitreous presented up to this point. Miochol was injected into the anterior chamber to bring down the iris which came down nice and smoothly and round. Approximately 0.7 mL of a mixture of triamcinolone, moxifloxacin, vancomycin was injected subconjunctivally in the superior quadrant for infection and inflammation prophylaxis. I&A was used to evacuate the viscoelastic materials from the anterior chamber, at which point a small bit of vitreous did present at the pupil margin and engaged the phaco wound. A strand of it was cut with Vannas scissors and then the rest was pulled away from the wound with a cyclodialysis spatula. The pupil rounded up again. The eye was inflated under physiologic pressure using balanced salt solution and found to be water tight. The patient was taken from the operating room in good condition and given postoperative instructions and also informed of the posterior capsular rupture and the insertion of a sulcus 3-piece IOL versus the planned bagged 1-piece IOL. JOB #: [id number] EXT JOB #:[id number] [facility]
== END 2016-12-14 08:20 | disposition home or self-care (01) ==
LOC: SDS 08:19
PROVIDERS: ATTEND Ophthalmology
PROC: 08RJ3JZ Replacement of Right Lens with Synthetic Substitute, Percutaneous Approach (ICD-10-PCS; principal; 2016-12-14 09:30)
DX: H25.811 Combined forms of age-related cataract, right eye (principal); D46.9 Myelodysplastic syndrome, unspecified; I50.9 Heart failure, unspecified; E66.9 Obesity, unspecified; F32.9 Major depressive disorder, single episode, unspecified; F41.9 Anxiety disorder, unspecified; D61.818 Other pancytopenia; K21.9 Gastro-esophageal reflux disease without esophagitis; Z68.38 Body mass index [BMI] 38.0-38.9, adult
CPT/HCPCS: 66982; A9270; J3490; J7620; V2632

== ENCOUNTER 2017-01-10 08:56 | Outpatient (CLI) | payer OTHER | END 2017-01-10 08:57 | disposition critical access hospital (66) | LOC: EMS 08:56 | PROVIDERS: ATTEND Surgery | DX: R06.02 Shortness of breath (principal) | CPT/HCPCS: A0425; A0427 ==

== ENCOUNTER 2017-01-10 09:29 | Inpatient (IN) | payer OTHER ==
[2017-01-10] MEDS ORDERED: ALBUTEROL NEB 2.5 MG/3 ML INH STA (09:36)
--- NOTE | 2017-01-10 09:53 | ED Physician Documentation ---
History of Present Illness - Stated complaint Stated Complaint: SOA - Chief complaint Chief Complaint: Resp - Additonal information Additional information: hx from pt and EMS and EMR 76 male known myledysplasia, transfusion dependent, WBC runs about 2K, ANC about 400, plt approx 23K on prophylactic bactrim and acyclovir gets transfused approx q2wk also has home O2 dependent COPD no CHF has had 3 days of chest pain and inc soa which is his usual indication of needing transfusion no fever cough abd pain NVD or inc leg swelling was tachypneic zavala soa when EMS arrived and is much better after a duoneb tx Review of Systems Constitutional: denies: Fever, Chills Cardiac: reports: Chest pain / pressure Respiratory: reports: Dyspnea GI: denies: Abdominal Pain, Nausea, Bloody / black stool : denies: Dysuria Musculoskeletal: denies: Extremity swelling Neurologic: denies: Generalized weakness Endocrine: reports: Easy bruising / bleeding (low plt) Immunocompromised: reports: Immunocompromised (low ANC) PD PAST MEDICAL HISTORY - Past Medical History Past Medical History: Yes Cardiovascular: Hypertension, Arrhythmia Respiratory: Sleep apnea Neuro: None Endocrine/Autoimmune: None GI: GERD : Nocturia, Frequency HEENT: Glaucoma, Chronic hearing loss Psych: Anxiety, Post traumatic stress disorder Musculoskeletal: Osteoarthritis, Chronic back pain, Other Derm: None - Past Surgical History Past Surgical History: Yes General: Other Ortho: Other HEENT: Tonsil/Adenoidectomy - Present Medications Home Medications: Ambulatory Orders Medication Instructions Recorded Confirmed ALPRAZolam [Xanax] 0.25 mg PO BID 01/20/15 01/10/17 Furosemide [Lasix] 40 tab PO BID 07/12/15 01/10/17 Sulfamethoxazole/Trimethoprim 160 - 800 mg PO DAILY 02/03/16 01/10/17 [Bactrim Ds Tablet] Valacyclovir HCl [Valacyclovir] 500 mg PO BID 02/03/16 01/10/17 Atenolol [Tenormin] 50 mg PO QPM tablet 08/13/16 01/10/17 FLUoxetine [PROzac] 20 mg PO QPM capsule 08/13/16 01/10/17 Fluconazole [Diflucan] 100 mg PO DAILY tablet 08/13/16 01/10/17 Pantoprazole [Protonix] 40 mg PO QDAC tablet 08/13/16 01/10/17 Hydrocodone/Acetaminophen [[place] 1 tab ORAL BID PRN 08/18/16 01/10/17 5-325 Tablet] Prednisone 10 mg ORAL DAILY 08/18/16 01/10/17 Cholecalciferol [Vitamin D3] 5,000 unit PO DAILY 12/04/16 01/10/17 Folic Acid 0.4 mg PO DAILY 12/04/16 01/10/17 Senna [Senokot] 8.6 mg PO DAILY 12/04/16 01/10/17 Brimonidine Tartrate/Timolol 1 drops RIGHTEYE BID 01/10/17 01/10/17 [Combigan 0.2%-0.5% Eye Drops] Dorzolamide 2% Ophth Drops 1 drops EACHEYE TID 01/10/17 01/10/17 [Trusopt 2% Ophth Drops] Ipratropium/Albuterol Sulfate 3 ml IH BID PRN 01/10/17 01/10/17 [Iprat-Albut 0.5-3(2.5) mg/3 ml] Latanoprost [Latanoprost] 1 drops EACHEYE DAILY PM 01/10/17 01/10/17 - Allergies Allergies/Adverse Reactions: Allergies Allergy/AdvReac Type Severity Reaction Status Date / Time morphine Allergy Unknown Unknown Verified 08/04/16 19:06 niacin Allergy Unknown Unknown Verified 08/04/16 19:06 adhesive tape Allergy Hives Verified 08/04/16 19:06 diphenhydramine AdvReac Anxiety Verified 08/04/16 19:06 Bryn Pad Allergy Hives Uncoded 08/04/16 19:06 - Social History Does the pt smoke?: Yes Smoking Status: Former smoker Does the pt drink ETOH?: No Does the pt have substance abuse?: No - Immunizations Immunizations are current?: Yes - POLST Patient has POLST: No PD ED PE NORMAL - Vitals Vital signs reviewed: Yes - General General: Alert and oriented X 3 - HEENT HEENT: PERRL, Other (pale) - Cardiac Cardiac: RRR - Respiratory Respiratory: Other (shayy wheezing) - Abdomen Abdomen: Soft, Non tender - Derm Derm: Normal color - Extremities Extremities: No deformity, Other (shayy mod symmetrical edema) - Neuro Neuro: Alert and oriented X 3, No motor deficit, No sensory deficit Results - Vitals Vitals: Vital Signs - 24 hr 01/10/17 01/10/17 01/10/17 09:33 10:00 10:21 Temperature 36.5 C Heart Rate 108 H 109 H 109 H Respiratory 20 17 Rate Blood Pressure 103/82 H 101/59 L O2 Saturation 93 92 Oxygen O2 Source Nasal cannula - EKG (time done) 1027 Rate: Rate (enter#) (109) Rhythm: Sinus tachycardia [place]: Normal Intervals: RBBB Ischemia: ST depression, Other (diffusely) Compare to prior EKG: Other (RBB not new, ST depr is ) - Labs Labs: Laboratory Tests 01/10/17 01/10/17 01/10/17 09:55 09:55 09:55 WBC 1.2 L* RBC 1.60 L Hgb 4.7 L* Hct 14.2 L* MCV 88.7 MCH 29.2 MCHC 32.9 RDW 16.7 H Plt Count 5 L* MPV 8.0 Neut # 0.1 L* Lymph # 0.9 L [place] # 0.1 Eos # 0.0 Baso # 0.0 Absolute Nucleated RBC 0.00 Nucleated RBCs 0.3 Manual Slide Review Indicated Platelet Estimate DECREASED (<130,000) Platelet Morphology NORMAL APPEARANCE RBC Morph Micro Appear 1+ HYPOCHROMASIA PT 12.9 H INR 1.2 Sodium 136 Potassium 4.2 Chloride 93 L Carbon Dioxide 35 H Anion Gap 8.0 BUN 26 H Creatinine 1.0 Estimated GFR (MDRD) 73 L Glucose 161 H Calcium 9.3 Phosphorus Magnesium Troponin I B-Natriuretic Peptide Blood Type Antibody Screen Crossmatch 01/10/17 01/10/17 01/10/17 09:55 09:55 09:55 WBC RBC Hgb Hct MCV MCH MCHC RDW Plt Count MPV Neut # Lymph # [place] # Eos # Baso # Absolute Nucleated RBC Nucleated RBCs Manual Slide Review Platelet Estimate Platelet Morphology RBC Morph Micro Appear PT INR Sodium Potassium Chloride Carbon Dioxide Anion Gap BUN Creatinine Estimated GFR (MDRD) Glucose Calcium Phosphorus Magnesium Troponin I 0.05 B-Natriuretic Peptide 170 H Blood Type O POSITIVE Antibody Screen NEGATIVE Crossmatch 01/10/17 01/10/17 09:55 09:55 WBC RBC Hgb Hct MCV MCH MCHC RDW Plt Count MPV Neut # Lymph # [place] # Eos # Baso # Absolute Nucleated RBC Nucleated RBCs Manual Slide Review Platelet Estimate Platelet Morphology RBC Morph Micro Appear PT INR Sodium Potassium Chloride Carbon Dioxide Anion Gap BUN Creatinine Estimated GFR (MDRD) Glucose Calcium Phosphorus 4.0 Magnesium 1.6 L Troponin I B-Natriuretic Peptide Blood Type Cancelled Antibody Screen Cancelled Crossmatch See Detail - Rads (name of study) CXR Radiology: See rad report (cardiomegaly, inc perihilar reticular opacity, small effusions possible, suspicious for lung edema 2/2 CHF, PICC to mid SVC, no pneumo) PD MEDICAL DECISION MAKING - ED course ED course: profound pancytopenia with symptomatic anemia, also pulm edema on CXR which will complicate transfusions EKG with ST depr but trop neg after 3 days of sx will admit for transfusions of RBC and plt and possibly need for diuresis and echo [facility]: 1) this is not service connected 2) pt has medicare A 3) CT is full for these reasons pt can be admitted to [facility] Departure - Departure Disposition: 66 [facility] DC/Xfer Clinical Impression: Refractory anemia due to myelodysplastic syndrome, Pancytopenia Dyspnea Qualifiers: Dyspnea type: unspecified Qualified Code(s): R06.00 - Dyspnea, unspecified Condition: Fair Discharge Date/Time: 01/10/17 12:35
[2017-01-10] MEDS ORDERED: SODIUM CHLORIDE FLUSH 0.9% 10 ML SYRINGE IVP ONE (09:54)
[2017-01-10] MEDS ORDERED: ALBUTEROL NEB 2.5 MG/3 ML INH ONE (10:00)
[2017-01-10] MEDS ORDERED: ACETYLCYSTEINE 10% 30 ML VIAL INH ONE (10:00)
[2017-01-10 10:13] LABS: BASOPHILS % (AUTO) 0.7 %; EOSINOPHILS % (AUTO) 0.3 %; LYMPHOCYTES # (AUTO) 0.9 10^3/uL (1.5-3.5); LYMPHOCYTES % (AUTO) 79.9 %; MEAN CORPUSCULAR HEMOGLOBIN 29.2 pg (27.0-31.0); MEAN CORPUSCULAR HGB CONC 32.9 g/dL (32.0-36.0); MEAN CORPUSCULAR VOLUME 88.7 fL (80.0-94.0); MONOCYTES # (AUTO) 0.1 10^3/uL (0.0-1.0); MONOCYTES % (AUTO) 9.7 %; NEUTROPHILS % (AUTO) 9.4 %; NUCLEATED RED BLOOD CELLS AUTO 0.3 /100WBC; RED CELL DISTRIBUTION WIDTH 16.7 % (12.0-15.0); UNCORRECTED WHITE BLOOD COUNT 1.2 x10^3/uL
[2017-01-10 10:19] LABS: CALCIUM 9.3 mg/dL (8.5-10.3); POTASSIUM 4.2 mmol/L (3.5-5.0)
[2017-01-10 10:32] LABS: INR 1.2 (0.8-1.2); PT - PROTHROMBIN TIME 12.9 secs (9.9-12.6)
[2017-01-10 10:33] LABS: WHITE BLOOD COUNT 1.2 x10^3/uL (4.8-10.8)
--- NOTE | 2017-01-10 10:33 | XRAY Preliminary Report ---
Exam: XR Chest 1 View IMPRESSION: 1. There is cardiomegaly. 2. There is increased perihilar reticular opacity with diminished vascular clarity. Small effusions m ay be present. Findings are suspicious for lung edema secondary to heart failure. 3. Right approach PICC tip extends at least to the mid SVC. 4. No evidence of pneumothorax. [facility] SITE ID: [id number]
[2017-01-10 10:34] LABS: HCT - HEMATOCRIT 14.2 % (42.0-52.0); HGB - HEMOGLOBIN 4.7 g/dL (14.0-18.0); NEUTROPHILS # (AUTO) 0.1 10^3/uL (1.5-6.6)
--- NOTE | 2017-01-10 10:34 | XRAY Report ---
EXAM: CHEST RADIOGRAPHY EXAM DATE: 01/10/2017 09:53 AM. CLINICAL HISTORY: Chest pain COMPARISON: 11/29/2016, 08/05/2016:. TECHNIQUE: 1 view. FINDINGS: Lungs/Pleura: Plethoric pulmonary vasculature. There is increased opacity within the lungs. Small eff usions may be present. No evidence of pneumothorax. Mediastinum: There is cardiomegaly. Other: Right approach PICC tip extends at least the mid SVC. IMPRESSION: 1. There is cardiomegaly. 2. There is increased perihilar reticular opacity with diminished vascular clarity. Small effusions m ay be present. Findings are suspicious for lung edema secondary to heart failure. 3. Right approach PICC tip extends at least to the mid SVC. 4. No evidence of pneumothorax. [facility] Referring Provider Line: [phone] SITE ID: [id number]
[2017-01-10 10:52] LABS: PLATELET ESTIMATE, MANUAL DECREASED (<130,000) (NORMAL); PLATELET MORPHOLOGY NORMAL APPEARANCE (NORMAL)
[2017-01-10] MEDS ORDERED: ONDANSETRON 4 MG/2 ML VIAL IVP PRN (11:41)
[2017-01-10] MEDS ORDERED: SODIUM CHLORIDE 0.9% 100ML 100 ML IV ONE ×2 (14:07→18:41)
[2017-01-10] MEDS: ACETAMINOPHEN 325 MG TABLET PO PRN (14:16)
[2017-01-10] MEDS: SODIUM CHLORIDE FLUSH 0.9% 10 ML SYRINGE IVP SCH ×2 (14:17→23:11)
[2017-01-10] MEDS: ALPRAZolam 0.25 MG TABLET PO SCH ×2 (14:17→21:04)
[2017-01-10] MEDS: SODIUM CHLORIDE FLUSH 0.9% 10 ML SYRINGE IVP PRN (14:23)
[2017-01-10 14:53] LABS: MAGNESIUM 1.6 mg/dL (1.7-2.8)
[2017-01-10] MEDS: SODIUM CHLORIDE 0.9% 1,000 ML IV SCH (15:50)
[2017-01-10] MEDS: PANTOPRAZOLE 40 MG TABLET PO SCH (15:51)
[2017-01-10] MEDS: FUROSEMIDE 40 MG/4 ML VIAL IVP SCH (15:51)
[2017-01-10] MEDS: MAGNESIUM OXIDE 400 MG TABLET PO SCH ×2 (16:04→21:03)
[2017-01-10] MEDS: DORZOLAMIDE 2% OPHTH DROPS EACHEYE SCH ×2 (16:05→21:07)
[2017-01-10 16:16] LABS: BILIRUBIN,URINE NEGATIVE (NEGATIVE)
[2017-01-10 16:17] LABS: UA w/ MICROSCOPIC CHARGE YES
[2017-01-10 16:24] LABS: UR CULTURE IF IND NOT INDICATED; WBC,URINE 0-3 /HPF (0-3)
[2017-01-10] MEDS: IPRATROPIUM/ALBUTEROL 3 ML NEB INH PRN (16:48)
--- NOTE | 2017-01-10 18:21 | HISTORY & PHYSICAL EXAMINATION ---
DATE OF ADMISSION: 01/10/2017 CHIEF COMPLAINT: Weakness and shortness of breath. IDENTIFYING INFORMATION: The patient is primary source of history and appears cogent, consistent, and thorough, although he is quite repetitive emphasizing certain details with reiteration. The patient' s history is supplemented by the handoff from Dr. Springer, emergency department physician, as well as personal review of past medical records summarized below and data collected during this visit. The hoang pierce's interview and examination by this physician were also used in his evaluation and preparation of this document. HISTORY OF PRESENT ILLNESS: The patient says that he woke up this morning, was too weak to get out of bed, he knew something was wrong because his dog slept with him and it tends to do that when he is n ot feeling well, and does with his as well. He gave some examples. The patient has known myelodysplasia and has neutropenia, thrombocytopenia. He got recent chemotherap y last week of Dacogen. He was supposed to have a followup appointment today to have blood work and t ransfusions and he was unable to get out of bed to make it to his appointment today and his even tually called EMS and he was brought in to be evaluated in the emergency department. REVIEW OF SYSTEMS: He has had no fever or chills. No sore throat. He has had a cough, it is chronic. He has had no nausea, vomiting, no hematemesis. No melena. He has frequent urination, but no dysuria. He has the weakness as noted above. He also has easy bruising. The patient was susceptible to infect ions. The patient's rest of the complete review of systems is negative as queried except as noted in the HPI. PAST MEDICAL HISTORY: Remarkable for 1. Hypertension. 2. Arrhythmia. 3. Sleep apnea. 4. Hearing loss. 5. Glaucoma. 6. Anxiety. 7. PTSD. 8. Arthritis. 9. Chronic back pain. 10. Myelodysplastic disorder. 11. Chronic anemia with some transfusion dependence. 12. Chronic obstructive pulmonary disease and chronic respiratory failure, on oxygen at home. PAST SURGERIES: He has had tonsillectomy and adenoidectomy. ALLERGIES: 1. MORPHINE. 2. NIACIN. 3. ADHESIVE TAPE. 4. DIPHENHYDRAMINE. 5. GERIPOD. MEDICATIONS: 1. Xanax 0.25 b.i.d.. 2. Lasix 20 mg tabs. 2 tabs twice a day. 3. Septra-DS. 1 a day. 4. Valacyclovir 500 mg twice a day. 5. Atenolol 50 mg a day. 6. Prozac 20 mg a day. 7. Diflucan 100 mg a day. 8. Protonix 40 mg a day. 9. Hydrocodone/acetaminophen 5/325 mg 1 twice a day. 10. Prednisone 10 mg a day. 11. Vitamin D3 5000 units a day. 12. Folic acid 0.4 mg a day. 13. Senna 8.6 mg a day. PERSONAL AND SOCIAL HISTORY: The patient has a 09-efbg-cdmp smoking history, quit in 2016, used to dr ink heavily in his younger years, not had a drink since late . No illicit drug use. He lives wit h of over 51 years who also has chronic medical problems. The patient was in the and th kiet worked for [employer]. FAMILY HISTORY: Parents both in their 90s of natural causes. Has a brother with deafness, arthri tis. There are his children who have morbid obesity and rheumatoid arthritis. PHYSICAL EXAMINATION: VITAL SIGNS: 36.5, 108, 20, 103/82, O2 saturation 93% on 5 liters nasal cannula. The patient appears chronically ill, although well-developed, well nourished. EYES: EOMs within normal limits, PERRL, nonicteric. MOUTH AND THROAT: Fair dentition. No other pathology, particularly no signs of thrush. MOUTH: Pharynx. NECK: No thyromegaly. No JVD, no bruits appreciated. CHEST WALL: Nontender. Symmetric. HEART: Sinus rhythm and intermittent irregular rhythm for which the patient has been diagnosed with a trial fibrillation. LUNGS: A few dry crackles at bases. Fair air movement. ABDOMEN: Very thick abdominal wall, soft, nontender. No hepatosplenomegaly appreciated. RECTAL/GENITAL: Exam was not done. EXTREMITIES: 2+ edema above the knees. VASCULAR: No pulses posterior tibial palpated. No cyanosis. NEURO: Cognitive intact. Cranial nerves intact. Motor fair strength bilaterally. No focal deficits. LABORATORY DATA: He has a white count of 1.2, H and H are 4.7 and 14, the platelet count is 5. The pa tient's sodium 136, potassium 4.2, CO2 was 35, BUN 26, creatinine 1.0, glucose 161, calcium is 9.3, t roponin at 0.05. Chest x-ray shows cardiomegaly and some evidence of interstitial edema consistent with the . SUMMARY: This is a 76-year-old male with myelodysplasia, transfusion dependent, neutropenia, thromboc ytopenia, who also has chronic respiratory failure secondary to COPD who comes in to the hospital wit h acute shortness of breath and generalized weakness, found in the emergency department to have a sev ere anemia and thrombocytopenia, as well as hypoxia. DISCHARGE DIAGNOSES: 1. Severe anemia. 2. Severe thrombocytopenia. 3. Acute on chronic respiratory failure. 4. Myelodysplastic disorder, severe. 5. Obstructive sleep apnea. 6. Hypertension. 7. Post traumatic stress disorder. 8. Chronic pain. DISCUSSION/DECISION MAKIN. Severe anemia will be remediated with transfusions starting with 2 units. 2. For severe thrombocytopenia, he is not actively bleeding and since his platelets are below 10,000 he will get a transfusion of platelets today and potentially tomorrow. 3. Acute on chronic respiratory failure. He is getting breathing treatments and oxygen supplementatio n. Same breathing treatments with beta agonists and oxygen. This will be monitored and treated and du e diligence to return his oxygen supplementation to his baseline at 2 liters. 4. Myelodysplastic disorder. He will be followed by his oncologist at the [facility] clinic. 5. Obstructive sleep apnea will have no further treatment besides the oxygen supplementation. 6. The hypertension will be monitored. At this time he has low normal blood pressure, so no blood pre ssure medications will be used. 7. His PTSD will be treated with the Xanax. 8. Chronic pain. He will get his hydrocodone with acetaminophen. The patient also be placed in immuno compromised precautions given his ANC is below 500. The patient will also be monitored for possible f ever. HOSPITAL ISSUES: 1. HE IS FULL CODE which is reiterated in the ER that he wants everything done. 2. Venous thromboembolism prophylaxis, which is contraindicated given his severe thrombocytopenia. 3. Diet will be regular diet. 4. Activity will be assisted out of bed. 5. Tubes and lines. He will have his port used for labs, blood tests and medications. 6. Admission status: The patient is inpatient status due to the severity of his multiple life-threate ciara medical illnesses and the need for both diagnostic and therapeutic interventions will take at le ast 2 nights. 7. Length of stay which is estimated at 2 nights. 8. Disposition is expected to be home unless there is deterioration. JOB #: [id number] EXT JOB #:[id number]
[2017-01-10] MEDS: FLUoxetine 10 MG CAPSULE PO SCH (21:03)
[2017-01-10] MEDS: ATENOLOL 25 MG TABLET PO SCH (21:03)
[2017-01-10] MEDS: valACYclovir 500 MG TABLET PO SCH (21:04)
[2017-01-10] MEDS: LATANOPROST 0.005% OPHTH DROPS EACHEYE SCH (21:07)
[2017-01-10] MEDS: HYDROcod/ACETAM 5/325 MG TABLET PO PRN (23:15)
[2017-01-11] MEDS: IPRATROPIUM/ALBUTEROL 3 ML NEB INH PRN ×4 (05:03→23:09)
[2017-01-11] MEDS: DORZOLAMIDE 2% OPHTH DROPS EACHEYE SCH ×3 (05:18→21:38)
[2017-01-11] MEDS: FUROSEMIDE 40 MG/4 ML VIAL IVP SCH ×2 (05:18→14:19)
[2017-01-11] MEDS: PANTOPRAZOLE 40 MG TABLET PO SCH (05:19)
[2017-01-11] MEDS: SODIUM CHLORIDE FLUSH 0.9% 10 ML SYRINGE IVP PRN (05:19)
[2017-01-11] MEDS: SODIUM CHLORIDE FLUSH 0.9% 10 ML SYRINGE IVP SCH ×3 (05:19→23:03)
[2017-01-11 06:26] LABS: BASOPHILS % (AUTO) 0.8 %; EOSINOPHILS % (AUTO) 0.2 %; LYMPHOCYTES % (AUTO) 81.2 %; MEAN CORPUSCULAR HEMOGLOBIN 30.2 pg (27.0-31.0); MEAN CORPUSCULAR HGB CONC 34.3 g/dL (32.0-36.0); MEAN CORPUSCULAR VOLUME 87.9 fL (80.0-94.0); MEAN PLATELET VOLUME 8.1 fL (7.4-11.4); MONOCYTES % (AUTO) 8.1 %; NEUTROPHILS % (AUTO) 9.7 %; RED BLOOD COUNT 1.95 10^6/uL (4.70-6.10); RED CELL DISTRIBUTION WIDTH 15.6 % (12.0-15.0); UNCORRECTED WHITE BLOOD COUNT 1.4 x10^3/uL
[2017-01-11 06:33] LABS: ALBUMIN/GLOBULIN RATIO 0.7 (1.0-2.2); BILIRUBIN,TOTAL 0.7 mg/dL (0.2-1.0); CALCIUM 9.1 mg/dL (8.5-10.3); CREATININE 0.9 mg/dL (0.6-1.2); MAGNESIUM 1.7 mg/dL (1.7-2.8); PHOSPHORUS 3.9 mg/dL (2.5-4.6); POTASSIUM 4.6 mmol/L (3.5-5.0); TOTAL PROTEIN 6.8 g/dL (6.7-8.2)
[2017-01-11 06:34] LABS: WHITE BLOOD COUNT 1.4 x10^3/uL (4.8-10.8)
[2017-01-11 06:35] LABS: HCT - HEMATOCRIT 17.1 % (42.0-52.0); HGB - HEMOGLOBIN 5.9 g/dL (14.0-18.0)
[2017-01-11 06:37] LABS: BAND NEUTROPHILS % (MANUAL) 0 %
[2017-01-11 07:04] LABS: NEUTROPHILS % (MANUAL) 9 %; TOTAL CELLS COUNTED 100
[2017-01-11 07:05] LABS: LYMPHOCYTES % (MANUAL) 84 %; NP AUTO DIFFERENTIAL? YES; NP MAN DIFFERENTIAL? NO; PLATELET ESTIMATE, MANUAL DECREASED (<130,000) (NORMAL)
[2017-01-11] MEDS ORDERED: SODIUM CHLORIDE 0.9% 500 ML IV ONE (07:31)
[2017-01-11] MEDS: ACETAMINOPHEN 325 MG TABLET PO PRN (08:04)
[2017-01-11] MEDS: predniSONE 10 MG TABLET PO SCH (08:45)
[2017-01-11] MEDS: CHOLECALCIFEROL 5,000 UNIT CAPSULE PO SCH (08:45)
[2017-01-11] MEDS: SULFAMETH/TRIMETH DS 800/160 MG TABLET PO SCH (08:46)
[2017-01-11] MEDS: FLUCONAZOLE 100 MG TABLET PO SCH (08:47)
[2017-01-11] MEDS: valACYclovir 500 MG TABLET PO SCH ×2 (08:48→21:37)
[2017-01-11] MEDS: ALPRAZolam 0.25 MG TABLET PO SCH ×2 (08:48→21:35)
[2017-01-11] MEDS: SENNA 8.6 MG TABLET PO SCH (08:48)
[2017-01-11] MEDS ORDERED: FOLIC ACID 1 MG TABLET PO SCH (09:00)
[2017-01-11 16:35] LABS: HGB - HEMOGLOBIN 7.5 g/dL (14.0-18.0); MEAN CORPUSCULAR VOLUME 88.3 fL (80.0-94.0); RED BLOOD COUNT 2.5 10^6/uL (4.70-6.10); RED CELL DISTRIBUTION WIDTH 15.1 % (12.0-15.0)
[2017-01-11 16:49] LABS: WHITE BLOOD COUNT 0.7 x10^3/uL (4.8-10.8)
[2017-01-11] MEDS ORDERED: SODIUM CHLORIDE FLUSH 0.9% 10 ML SYRINGE IVP ONE (18:29)
[2017-01-11] MEDS: LATANOPROST 0.005% OPHTH DROPS EACHEYE SCH (21:36)
[2017-01-11] MEDS: FLUoxetine 10 MG CAPSULE PO SCH (21:36)
[2017-01-11] MEDS: SODIUM CHLORIDE 0.9% 1,000 ML IV SCH (21:39)
[2017-01-11] MEDS: ATENOLOL 25 MG TABLET PO SCH (21:42)
[2017-01-11] MEDS: HYDROcod/ACETAM 5/325 MG TABLET PO PRN (23:01)
[2017-01-12 06:25] LABS: BASOPHILS % (AUTO) 0.2 %; HCT - HEMATOCRIT 22.1 % (42.0-52.0); HGB - HEMOGLOBIN 7.5 g/dL (14.0-18.0); LYMPHOCYTES % (AUTO) 81.2 %; MEAN CORPUSCULAR HEMOGLOBIN 29.9 pg (27.0-31.0); MEAN CORPUSCULAR HGB CONC 34.1 g/dL (32.0-36.0); MEAN CORPUSCULAR VOLUME 87.8 fL (80.0-94.0); MONOCYTES % (AUTO) 10.9 %; NEUTROPHILS % (AUTO) 7.7 %; RED BLOOD COUNT 2.52 10^6/uL (4.70-6.10); RED CELL DISTRIBUTION WIDTH 15.2 % (12.0-15.0); UNCORRECTED WHITE BLOOD COUNT 1.2 x10^3/uL
[2017-01-12] MEDS: FUROSEMIDE 40 MG/4 ML VIAL IVP SCH (06:26)
[2017-01-12] MEDS: PANTOPRAZOLE 40 MG TABLET PO SCH (06:26)
[2017-01-12] MEDS: SODIUM CHLORIDE FLUSH 0.9% 10 ML SYRINGE IVP SCH (06:27)
[2017-01-12] MEDS: DORZOLAMIDE 2% OPHTH DROPS EACHEYE SCH (06:29)
[2017-01-12 06:30] LABS: MAGNESIUM 1.7 mg/dL (1.7-2.8); PHOSPHORUS 3.4 mg/dL (2.5-4.6)
[2017-01-12 06:34] LABS: WHITE BLOOD COUNT 1.2 x10^3/uL (4.8-10.8)
[2017-01-12 06:36] LABS: BAND NEUTROPHILS % (MANUAL) 0 %
[2017-01-12 06:51] LABS: NEUTROPHILS % (MANUAL) 8 %; TOTAL CELLS COUNTED 100
[2017-01-12 06:52] LABS: LYMPHOCYTES % (MANUAL) 88 %; NP AUTO DIFFERENTIAL? YES; NP MAN DIFFERENTIAL? NO; PLATELET ESTIMATE, MANUAL DECREASED (<130,000) (NORMAL)
[2017-01-12] MEDS ORDERED: MAGNESIUM OXIDE 400 MG TABLET PO SCH (07:00)
[2017-01-12] MEDS: IPRATROPIUM/ALBUTEROL 3 ML NEB INH PRN (07:40)
[2017-01-12] MEDS: SULFAMETH/TRIMETH DS 800/160 MG TABLET PO SCH (08:27)
[2017-01-12] MEDS: predniSONE 10 MG TABLET PO SCH (08:27)
[2017-01-12] MEDS: valACYclovir 500 MG TABLET PO SCH (08:27)
[2017-01-12] MEDS: ALPRAZolam 0.25 MG TABLET PO SCH (08:27)
[2017-01-12] MEDS: SODIUM CHLORIDE FLUSH 0.9% 10 ML SYRINGE IVP PRN (08:28)
[2017-01-12] MEDS: SENNA 8.6 MG TABLET PO SCH (08:28)
[2017-01-12] MEDS: CHOLECALCIFEROL 5,000 UNIT CAPSULE PO SCH (08:28)
[2017-01-12] MEDS: FLUCONAZOLE 100 MG TABLET PO SCH (08:28)
--- NOTE | 2017-01-12 08:28 | Discharge Plan ---
Discharge Plan Disposition: Home, Self Care Condition: Good Diet: Diabetic Activity Restrictions: Activity as Tolerated Shower Restrictions: Yes Driving Restrictions: Yes Weight Bearing: Full Weight Additional Instructions or Follow Up instructions: You need to be seen next Sunday at the [facility] [place]. Call for your appt time. Thank you, Dr. Payne No Smoking: If you smoke, Please STOP! Call for help. Follow-up with: Holger Guerrero MD [Primary Care Provider] - 4 Weeks
[2017-01-12 08:36] LABS: POTASSIUM 4.3 mmol/L (3.5-5.0)
[2017-01-12 08:56] VITALS: BP 120/83
--- NOTE | 2017-01-14 05:53 | PROVIDER PROGRESS NOTE ---
Subjective - Prog Note Date Prog Note Date: 01/11/17 Prog Note Time: 16:00 - Subjective Pt reports feeling: Improved (Late entry) Objective - Vital Signs/Intake & Output Reviewed Vital Signs: Yes Intake & Output: Intake & Output 01/11/17 01/12/17 01/13/17 01/14/17 23:59 23:59 23:59 23:59 Intake Total 4780 909 Output Total 3521 1640 Balance 1255 -741 - Objective General Appearance: positive: No acute distress, Alert Eyes Bilateral: positive: PERRL, EOMI ENT: positive: Pharynx nml, No signs of dehydration Neck: positive: Thyroid nml, No JVD Respiratory: positive: No respiratory distress, Rales Cardiovascular: positive: Regular rate & rhythm Abdomen: positive: Non-tender, Nml bowel sounds Neurologic/Psychiatric: positive: Oriented x3, CN's nml (2-12), Motor nml - Lab Results Fish Bones: 01/12/17 05:00 01/12/17 05:00 Assessment/Plan - Problem List (1) Neutropenia Impression: He has been neutropenic for months. He is not ususally this low. He has not had a fever. 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 Will give another unit of PRBCs. His platelets however, are up to 29K, higher than expected Will continue to monitor.
--- NOTE | 2017-01-16 12:05 | DISCHARGE SUMMARY ---
DATE OF ADMISSION: 01/10/2017 DATE OF DISCHARGE: 01/12/2017 PRIMARY CARE PHYSICIAN: Dr. Holger Guerrero ADMISSION DIAGNOSES 1. Severe anemia. 2. Severe thrombocytopenia. 3. Acute on chronic respiratory failure. 4. Myelodysplastic disorder, severe. 5. Obstructive sleep apnea. 6. Hypertension. 7. Post-traumatic stress disorder. 8. Chronic pain. DISCHARGE DIAGNOSES 1. Severe anemia, status post 5 units packed red cells with improvement. 2. Severe thrombocytopenia with improvement after platelet infusion. 3. Acute on chronic respiratory failure, resolved. 4. Myelodysplastic disorder, severe. 5. Obstructive sleep apnea. 6. Hypertension with fair control. 7. Post-traumatic stress disorder. 8. Chronic pain. SPECIAL PROCEDURES: None. CONSULTATIONS: None. HOSPITAL COURSE AND MANAGEMENT: The initial presentation, emergency department evaluation and hospita list's plans are well described in the History and Physical. See copy of same. SUMMARY: This is a 76-year-old male with myelodysplasia, transfusion-dependent, anemia, neutropenia, thrombocytopenia and also has chronic respiratory failure secondary to COPD who comes into the hospit al with acute shortness of breath and generalized weakness. He was found in the emergency department to have severe anemia and thrombocytopenia, as well as hypoxia. He was admitted. The patient received 2 units of packed red cells, another 2 units, and then a unit of platelets since his platelets were at 5000. The following morning, the patient had improvement in his symptoms as he had received 4 unit s over the course of the day and the night. The patient was only at 7.5 and 22, so he received anothe r unit of red cells. There was no further improvement however. The patient felt well and wanted to go home, and he was discharged home. PHYSICAL EXAMINATION VITAL SIGNS: On the day of discharge, temperature 37.0, pulse 102, blood pressure 102/83, 16 and 93% on 2 L, which is his home O2. EYES: The patient's eyes EOMI within normal limits, PERRL, nonicteric. MOUTH AND THROAT: Moist mucous membranes. No other pathology noted. NECK: Supple. Nontender. No lymphadenopathy. CHEST: Normal sinus rhythm. No murmur, rubs, clicks. LUNGS: Have scattered, dry rales. Fair air movement. ABDOMEN: Thick abdominal wall, soft, nontender. RECTAL/GENITAL: No rectal exam done. EXTREMITIES: Have 2+ edema and stasis dermatitis. NEUROLOGICAL: Cognitive intact. Cranial nerves intact. Motor intact. LABORATORY DATA: On the day of discharge, he had a white count of 1.2, 7.5 and 22.1 hemoglobin and he matocrit with 17,000 platelets. His absolute neutrophil count was 0.1. The patient's sodium 137, pota ssium 4.6, chloride 104, CO2 is 37, BUN 23, creatinine 0.9, and his glucose is 119, calcium at 9.1. ALLERGIES HE HAS ALLERGIES TO 1. MORPHINE. 2. NIACIN. 3. ADHESIVE TAPE. 4. DIPHENHYDRAMINE. HOME MEDICATIONS Are 1. Combigan 1 drop right eye twice a day. 2. IPRAT-ALBT 3 mL inhaled b.i.d. 3. Latanoprost 1 drop each eye daily at night. 4. Trusopt 1 drop each eye 3 times a day. 5. Lasix 40 mg b.i.d. 6. Xanax 0.25 b.i.d. 7. Senna 8.6 daily. 8. [place] 1 tab b.i.d. that is 5/325. 9. Folic acid 0.4 daily. 10. Diflucan 100 mg daily. 11. Prozac 20 mg q.p.m. 12. Vitamin D3, 5000 units daily. 13. Tenormin 50 q.p.m. 14. Prednisone 10 mg oral daily. 15. Protonix 40 mg daily. 16. Valacyclovir 500 mg b.i.d. 17. Sulfa-trimethoprim 1 pill twice a week, Sunday and . The patient is to follow up with the [facility] clinic next Sunday to get blood draw and be seen by his onc ologist the following day. He to get bone marrow on the . Time spent in discharge activities, collaborating with case management, social work, nursing and wilfred ent education is 35 minutes. Patient was examined on the day of discharge. JOB #: [id number] EXT JOB #:[id number]
== END 2017-01-12 09:15 | disposition home or self-care (01) | DRG 811 ==
LOC: EDUNIT# → ED 09:29 → ICU 11:41
PROVIDERS: ADMIT Internal Medicine; ATTEND Internal Medicine
PROC: 30233N1 Transfusion of Nonautologous Red Blood Cells into Peripheral Vein, Percutaneous Approach (ICD-10-PCS; principal; 2017-01-10)
PROC: 30233R1 Transfusion of Nonautologous Platelets into Peripheral Vein, Percutaneous Approach (ICD-10-PCS; 2017-01-10)
DX: D46.4 Refractory anemia, unspecified (principal); J96.21 Acute and chronic respiratory failure with hypoxia; J44.9 Chronic obstructive pulmonary disease, unspecified; G47.33 Obstructive sleep apnea (adult) (pediatric); I11.9 Hypertensive heart disease without heart failure; I48.91 Unspecified atrial fibrillation; F43.10 Post-traumatic stress disorder, unspecified; G89.29 Other chronic pain; M54.9 Dorsalgia, unspecified; Z79.899 Other long term (current) drug therapy; Z99.81 Dependence on supplemental oxygen; Z79.2 Long term (current) use of antibiotics; Z79.891 Long term (current) use of opiate analgesic; Z79.52 Long term (current) use of systemic steroids; Z87.891 Personal history of nicotine dependence; Z95.828 Presence of other vascular implants and grafts
CPT/HCPCS: 36415; 71010; 80048; 80053; 81001; 81003; 82040; 82310; 83735; 83880; 84100; 84132; 84484; 85025; 85610; 86850; 86900; 86901; 86902; 86922; 87086; 87150; 93005; 94640; 94664; 99284

== ENCOUNTER 2017-01-29 12:38 | Outpatient (CLI) | payer OTHER | END 2017-01-29 12:39 | disposition critical access hospital (66) | LOC: EMS 12:38 | PROVIDERS: ATTEND Surgery | DX: S01.21XA Laceration without foreign body of nose, initial encounter (principal); R29.6 Repeated falls; R42 Dizziness and giddiness; R53.1 Weakness; W18.30XA Fall on same level, unspecified, initial encounter; Y92.008 Other place in unspecified non-institutional (private) residence as the place of occurrence of the external cause | CPT/HCPCS: A0425; A0429 ==

== ENCOUNTER 2017-01-29 13:12 | Inpatient (IN) | payer OTHER ==
--- NOTE | 2017-01-29 13:18 | ED Physician Documentation ---
PD HPI Fall - Stated complaint Stated Complaint: GLF - History obtained from History obtained from: Patient, EMS - History of Present Illness Mechanism of injury: Other (he felt weak and that legs gave out when he was getting up to go to bathroom. He was feeling weak and fell yesterday as well. No URI symptoms. Today with the fall, he fell forward right, despite walker, and struck right chest and face. Had bloody nose for several minutes. No noted LOC.) Fall distance: Standing position Where injury occurred: Home Timing - onset: Today Injury(ies) location: Face, Chest Quality of pain: Throbbing, Aching (face around nose) Associated symptoms: Weakness (generalized). No: LOC, Nausea / vomiting Worsens with: Other (standing up and walking, feeling generally weak.) Contributing factors: No: Anticoagulated Similar symptoms before: Diagnosis (has felt this way with low blood count post chemo in the past.) Recently seen: Clinic [place] [facility] Review of Systems Constitutional: denies: Fever, Chills, Myalgias Nose: denies: Rhinorrhea / runny nose, Congestion Throat: denies: Sore throat Cardiac: denies: Chest pain / pressure Respiratory: reports: Dyspnea. denies: Cough GI: denies: Abdominal Pain, Nausea, Vomiting, Diarrhea : denies: Dysuria, Frequency PD PAST MEDICAL HISTORY - Past Medical History Cardiovascular: Hypertension, Arrhythmia Respiratory: Sleep apnea Neuro: None Endocrine/Autoimmune: None, Other (MDS, chemo regularly) GI: GERD : Nocturia, Frequency HEENT: Glaucoma, Chronic hearing loss Psych: Anxiety, Post traumatic stress disorder Musculoskeletal: Osteoarthritis, Chronic back pain, Other Derm: None - Past Surgical History Past Surgical History: Yes General: Other Ortho: Other HEENT: Tonsil/Adenoidectomy - Present Medications Home Medications: Ambulatory Orders Medication Instructions Recorded Confirmed ALPRAZolam [Xanax] 0.25 mg PO BID 01/20/15 01/10/17 Furosemide [Lasix] 40 tab PO BID 07/12/15 01/10/17 Sulfamethoxazole/Trimethoprim 160 - 800 mg PO DAILY 02/03/16 01/10/17 [Bactrim Ds Tablet] Valacyclovir HCl [Valacyclovir] 500 mg PO BID 02/03/16 01/10/17 Atenolol [Tenormin] 50 mg PO QPM tablet 08/13/16 01/10/17 FLUoxetine [PROzac] 20 mg PO QPM capsule 08/13/16 01/10/17 Fluconazole [Diflucan] 100 mg PO DAILY tablet 08/13/16 01/10/17 Pantoprazole [Protonix] 40 mg PO QDAC tablet 08/13/16 01/10/17 Hydrocodone/Acetaminophen [[place] 1 tab ORAL BID PRN 08/18/16 01/10/17 5-325 Tablet] Prednisone 10 mg ORAL DAILY 08/18/16 01/10/17 Cholecalciferol [Vitamin D3] 5,000 unit PO DAILY 12/04/16 01/10/17 Folic Acid 0.4 mg PO DAILY 12/04/16 01/10/17 Senna [Senokot] 8.6 mg PO DAILY 12/04/16 01/10/17 Brimonidine Tartrate/Timolol 1 drops RIGHTEYE BID 01/10/17 01/10/17 [Combigan 0.2%-0.5% Eye Drops] Dorzolamide 2% Ophth Drops 1 drops EACHEYE TID 01/10/17 01/10/17 [Trusopt 2% Ophth Drops] Ipratropium/Albuterol Sulfate 3 ml IH BID PRN 01/10/17 01/10/17 [Iprat-Albut 0.5-3(2.5) mg/3 ml] Latanoprost 1 drops EACHEYE DAILY PM 01/10/17 01/10/17 - Allergies Allergies/Adverse Reactions: Allergies Allergy/AdvReac Type Severity Reaction Status Date / Time morphine Allergy Unknown Unknown Verified 08/04/16 19:06 niacin Allergy Unknown Unknown Verified 08/04/16 19:06 adhesive tape Allergy Hives Verified 08/04/16 19:06 diphenhydramine AdvReac Anxiety Verified 08/04/16 19:06 [place] Allergy Hives Uncoded 08/04/16 19:06 - Social History Does the pt smoke?: Yes Smoking Status: Former smoker Does the pt drink ETOH?: No Does the pt have substance abuse?: No - Family History Family history: reports: Non contributory - Immunizations Immunizations are current?: Yes - POLST Patient has POLST: No PD ED PE NORMAL - Vitals Vital signs reviewed: Yes - General General: Alert and oriented X 3, No acute distress, Well developed/nourished, Other (abrasion nasal bridge. No blood in nostrils. Some swelling nose, with deviation to the left. ) - HEENT HEENT: Ears normal, Moist mucous membranes, Pharynx benign - Neck Neck: Supple, no meningeal sign, No adenopathy - Cardiac Cardiac: RRR, No murmur - Respiratory Respiratory: Clear bilaterally, Other (mild chestwall tenderness right anterolateral. ) - Abdomen Abdomen: Soft, Non tender - Male Male : Deferred - Rectal Rectal: Deferred - Back Back: No spinal TTP - Derm Derm: Normal color, Warm and dry - Extremities Extremities: Normal ROM s pain, No edema, No calf tenderness / cord - Neuro Neuro: Alert and oriented X 3, emanations analysis technician 2-12 intact, No motor deficit, Normal speech - Psych Psych: Normal mood, Normal affect Results - Vitals Vitals: Vital Signs - 24 hr 01/29/17 01/29/17 13:15 15:49 Temperature 36.8 C 37.0 C Heart Rate 111 H 110 H Respiratory 22 18 Rate Blood Pressure 101/71 O2 Saturation 91 L 100 Oxygen O2 Source Nasal cannula - Labs Labs: Laboratory Tests 01/29/17 01/29/17 01/29/17 14:06 14:06 14:06 WBC 0.7 L* RBC 2.28 L Hgb 6.8 L* Hct 19.8 L* MCV 86.8 MCH 29.6 MCHC 34.1 RDW 14.0 Plt Count 18 L* MPV 6.9 L Neut # HEATING MECHANIC Lymph # HEATING MECHANIC [place] # HEATING MECHANIC Eos # HEATING MECHANIC Baso # HEATING MECHANIC Absolute Nucleated RBC HEATING MECHANIC Total Counted 50 Band Neuts % (Manual) 0 Neutrophils # (Manual) 0.0 L* Lymphocytes # (Manual) 0.6 L Monocytes # (Manual) 0.1 Nucleated RBCs HEATING MECHANIC Differential Comment MANUAL DIFFERENTIAL Platelet Estimate DECREASED (<130,000) Platelet Morphology NORMAL APPEARANCE RBC Morph Micro Appear 1+ ANISOCYTOSIS Sodium 131 L Potassium 4.6 Chloride 87 L Carbon Dioxide 38 H Anion Gap 6.0 BUN 19 Creatinine 1.0 Estimated GFR (MDRD) 73 L Glucose 166 H Calcium 9.2 Magnesium 1.2 L Total Bilirubin 0.6 AST 53 H ALT 62 H Alkaline Phosphatase 61 Total Protein 7.3 Albumin 2.8 L Globulin 4.5 H Albumin/Globulin Ratio 0.6 L Lipase 44 Blood Type O POSITIVE Antibody Screen NEGATIVE Crossmatch 01/29/17 14:06 WBC RBC Hgb Hct MCV MCH MCHC RDW Plt Count MPV Neut # Lymph # [place] # Eos # Baso # Absolute Nucleated RBC Total Counted Band Neuts % (Manual) Neutrophils # (Manual) Lymphocytes # (Manual) Monocytes # (Manual) Nucleated RBCs Differential Comment Platelet Estimate Platelet Morphology RBC Morph Micro Appear Sodium Potassium Chloride Carbon Dioxide Anion Gap BUN Creatinine Estimated GFR (MDRD) Glucose Calcium Magnesium Total Bilirubin AST ALT Alkaline Phosphatase Total Protein Albumin Globulin Albumin/Globulin Ratio Lipase Blood Type Cancelled Antibody Screen Cancelled Crossmatch See Detail PD MEDICAL DECISION MAKING - ED course Complexity details: reviewed old records, reviewed results, considered differential (having symptomatic anemia. No signs/symptoms of sepsis or infection. ), d/w patient, d/w sr solutions consultant (Hospitalist) Departure - Departure Disposition: ED Place in Observation Clinical Impression: Generalized weakness, Falling episodes, Symptomatic anemia, Myelodysplastic syndrome Facial contusion Qualifiers: Encounter type: initial encounter Qualified Code(s): S00.83XA - Contusion of other part of head, initial encounter Contusion, chest wall Qualifiers: Encounter type: initial encounter Laterality: right Qualified Code(s): S20.211A - Contusion of right front wall of thorax, initial encounter Condition: Stable Record reviewed to determine appropriate education?: Yes
[2017-01-29 14:30] LABS: BASOPHILS % (AUTO) 0.2 %; LYMPHOCYTES % (AUTO) 80.1 %; MEAN CORPUSCULAR HEMOGLOBIN 29.6 pg (27.0-31.0); MEAN CORPUSCULAR HGB CONC 34.1 g/dL (32.0-36.0); MEAN CORPUSCULAR VOLUME 86.8 fL (80.0-94.0); MEAN PLATELET VOLUME 6.9 fL (7.4-11.4); MONOCYTES % (AUTO) 14.5 %; NEUTROPHILS % (AUTO) 4.2 %; RED BLOOD COUNT 2.28 10^6/uL (4.70-6.10); UNCORRECTED WHITE BLOOD COUNT 0.7 x10^3/uL
[2017-01-29 14:34] LABS: HGB - HEMOGLOBIN 6.8 g/dL (14.0-18.0); WHITE BLOOD COUNT 0.7 x10^3/uL (4.8-10.8)
[2017-01-29 14:35] LABS: HCT - HEMATOCRIT 19.8 % (42.0-52.0)
[2017-01-29 14:37] LABS: BAND NEUTROPHILS % (MANUAL) 0 %
[2017-01-29 14:38] LABS: ALBUMIN/GLOBULIN RATIO 0.6 (1.0-2.2); BILIRUBIN,TOTAL 0.6 mg/dL (0.2-1.0); CALCIUM 9.2 mg/dL (8.5-10.3); MAGNESIUM 1.2 mg/dL (1.7-2.8); POTASSIUM 4.6 mmol/L (3.5-5.0); TOTAL PROTEIN 7.3 g/dL (6.7-8.2)
--- NOTE | 2017-01-29 14:52 | XRAY Preliminary Report ---
Exam: XR Chest 2 View PA/LAT IMPRESSION: 1. No acute abnormality demonstrated. [facility] SITE ID: [id number]
--- NOTE | 2017-01-29 14:54 | XRAY Report ---
EXAM: CHEST RADIOGRAPHY EXAM DATE: 01/29/2017 02:42 PM. CLINICAL HISTORY: Fall with right chest contusion. COMPARISON: 11/29/2016. TECHNIQUE: 2 views. FINDINGS: Lungs/Pleura: No focal consolidation evident. Mild diffuse interstitial prominence. No pleural effusion. No pneumothorax. Lateral left mid lung scarring. Mediastinum: Tortuous thoracic aorta with atherosclerotic calcifications. Other: Right arm PICC line with tip overlying cavoatrial junction. IMPRESSION: 1. No acute abnormality demonstrated. [facility] Referring Provider Line: [phone] SITE ID: [id number]
--- NOTE | 2017-01-29 14:58 | CT Preliminary Report ---
Exam: CT Facial Bones W/O IMPRESSION: 1. No facial fracture evident. [facility] SITE ID: [id number]
--- NOTE | 2017-01-29 15:01 | CT Report ---
EXAM: CT MAXILLOFACIAL WITHOUT CONTRAST EXAM DATE: 01/29/2017 02:31 PM. CLINICAL HISTORY: Fall with facial injury/nose. COMPARISONS: None. TECHNIQUE: Thin-section axial images were acquired of the face without contrast. Post-processing: Cor onal and sagittal reformats. Other: None. In accordance with CT protocol optimization, one or more of the following dose reduction techniques w ere utilized for this exam: automated exposure control, adjustment of mA and/or KV based on patient s ize, or use of iterative reconstructive technique. FINDINGS: Bones: No fracture or bone lesion. Temporomandibular Joints: The temporomandibular joints are symmetric during open-mouth position. Sinuses: Partial ethmoid air cell opacification. Bilateral maxillary antral mucosal thickening. Left sphenoid sinus mucosal thickening. Other: Patient is nearly edentulous, with dental disease in residual teeth. Cervical spine degenerative changes. IMPRESSION: 1. No facial fracture evident. [facility] Referring Provider Line: [phone] SITE ID: [id number]
[2017-01-29 16:05] LABS: NEUTROPHILS % (MANUAL) 2 %; TOTAL CELLS COUNTED 50
[2017-01-29 16:10] LABS: LYMPHOCYTES % (MANUAL) 88 %; NP AUTO DIFFERENTIAL? YES; PLATELET ESTIMATE, MANUAL DECREASED (<130,000) (NORMAL); PLATELET MORPHOLOGY NORMAL APPEARANCE (NORMAL)
[2017-01-29 16:11] LABS: NP MAN DIFFERENTIAL? NO
[2017-01-29] MEDS ORDERED: ONDANSETRON ODT 4 MG TABLET TL PRN (16:53)
[2017-01-29] MEDS ORDERED: FUROSEMIDE 20 MG/2 ML VIAL IVP PRN (17:02)
[2017-01-29] MEDS ORDERED: diphenhydrAMINE INJ 50 MG/ML VIAL IVP ONE (17:04)
[2017-01-29] MEDS ORDERED: PANTOPRAZOLE 40 MG VIAL ONE (18:26)
[2017-01-29] MEDS ORDERED: SODIUM CHLORIDE FLUSH 0.9% 10 ML SYRINGE IVP ONE (18:27)
[2017-01-29] MEDS ORDERED: SODIUM CHLORIDE 0.9% 250 ML IV ONE (18:29)
[2017-01-29] MEDS ORDERED: ALPRAZolam 0.25 MG TABLET PO PRN (18:47)
[2017-01-29] MEDS: ACETAMINOPHEN 325 MG TABLET PO PRN (18:48)
[2017-01-29] MEDS: PANTOPRAZOLE 40 MG VIAL IVP SCH (18:52)
[2017-01-29] MEDS: SODIUM CHLORIDE FLUSH 0.9% 10 ML SYRINGE IVP PRN ×4 (18:52→23:01)
[2017-01-29 19:21] LABS: BILIRUBIN,URINE NEGATIVE (NEGATIVE); PH,URINE 6.5 PH (5.0-7.5)
[2017-01-29 19:22] LABS: UA w/ MICROSCOPIC CHARGE YES
[2017-01-29 19:31] LABS: WBC,URINE 0-3 /HPF (0-3)
[2017-01-29 19:32] LABS: UR CULTURE IF IND NOT INDICATED
[2017-01-29] MEDS: IPRATROPIUM/ALBUTEROL 3 ML NEB INH PRN (19:48)
[2017-01-29] MEDS: SODIUM CHLORIDE 0.9% 1,000 ML IV SCH (20:00)
[2017-01-29] MEDS: MAGNESIUM SULFATE 2 GRAM 50 ML IV SCH ×2 (20:00→21:18)
--- NOTE | 2017-01-29 20:10 | HISTORY & PHYSICAL EXAMINATION ---
DATE OF ADMISSION: 01/29/2017 CHIEF COMPLAINT: Fall with facial contusion, and anemia with myelodysplastic syndrome. HISTORY OF PRESENT ILLNESS: The patient is a pleasant 76-year-old obese gentleman who presented to the ER today with a complaint of muscle weakness and a fall that happened yesterday. The patient states that his legs gave out on him , and the started to fall forward while he was going to the bathroom. He states that today, he had another fall. This time, he fell forward, even though he was using his walker, and struck the right side of his chest and his face. He states that he had a bloody nose for several minutes, but denied LOC or hitting his head. The patient has had similar symptoms in the past. He states that when he gets weak after chemotherapy, he has had falls; however, not as significant as the one he had today. The patient take chemotherapy weekly at the [facility]. He states that the trauma that happened today was to his face and his chest. It was moderate to severe. He states that he has a throbbing ache around his face and on his nose. He has had generalized weakness for several days status post chemotherapy. He denies nausea, vomiting, and LOC. He states that the pain in his chest is worse when standing up and walking, and that he has generally been feeling weak since the fall, as well as from the chemo. The patient does have a low platelet count at 18 on admission today. He was found to have a hemoglobin at 6.8 today. The patient denies having vomiting, diarrhea , dysuria, cough, sore throat, runny nose, congestion, rhinorrhea, fever, chills , or myalgias. The patient does have a significant medical history for sleep apnea, hypertension, arrhythmias, myelodysplastic syndrome, and chemotherapy regularly. The patient will be admitted to inpatient status because he did have a low magnesium at 1.2. Platelets were 18, and his hemoglobin was at 6.8, so he will need electrolyte replacement along with transfusion of both platelets and 2 units of packed red blood cells. ALLERGIES: 1. MORPHINE. 2. NIACIN. 3. ADHESIVE TAPE. 4. DIPHENHYDRAMINE. 5. [place] PADS. CURRENT MEDICATIONS: 1. Xanax. 2. Lasix. 3. Bactrim. 4. Valacyclovir. 5. Atenolol. 6. Prozac. 7. Diflucan. 8. Protonix. 9. [place] 5/325 tablets. 10. Prednisone. 11. Vitamin D. 12. Folic acid. 13. Senokot p.r.n. 14. Timolol eye drops. 15. Trusopt 2% ophthalmic drops. 16. Atrovent. 17. Latanoprost. PAST MEDICAL HISTORY: 1. Hypertension. 2. Sleep apnea. 3. Myelodysplastic syndrome. 4. GERD. 5. Nocturia. 6. Glaucoma. 7. Chronic hearing loss. 8. Anxiety. 9. PTSD. 10. Osteoarthritis. 11. Chronic back pain. PAST SURGICAL HISTORY: Includes tonsillectomy, adenoidectomy, and chemotherapy regularly. PAST FAMILY HISTORY: The patient states that both of his parents are . His father did have hypertension and a CVA. Unsure about mother. She of old age. SOCIAL HISTORY: The patient does not smoke. Has not used alcohol in many years. He was a former smoker one time and does not use illicit street drugs. He is retired. The patient does not have a POLST form on file. He is a FULL CODE. REVIEW OF SYSTEMS: Ten systems have been reviewed and are negative with the exceptions that were discussed in the HPI prior. PHYSICAL EXAMINATION: CONSTITUTIONAL: The patient is alert and in no acute distress. EYES: Pupils are equal, round, and react to light and accommodation. Conjunctivae and sclerae were nonicteric. NOSE: He does have some swelling around his nose with some slight deviation to the left, with dried blood on the anterior portion of the left naris, and does have an abrasion to the bridge of his nose. NECK: Supple. No thyromegaly. No adenopathy. RESPIRATORY: Breath sounds are clear and equal bilaterally to auscultation and percussion. No retractions, nasal flaring, or increased work of breathing. He does have some mild chest wall tenderness to the right anterolateral portion of the chest. GASTROINTESTINAL: Abdomen is soft, nontender, and obese. Bowel sounds are present. No guarding or rebound. SKIN: Warm, dry, and intact. Normal turgor. No evidence of rash, lesions, or cellulitis. GENITOURINARY: No CVA tenderness. No mass palpated. No bladder distention. PSYCHIATRIC: Behavior is appropriate. He is oriented x3 and cooperative. NEUROLOGIC: The patient is alert. GCS 15. Cranial nerves 2 through 7 are grossly intact. Sensory is intact. MUSCULOSKELETAL: The patient has full range of motion of the upper and lower extremities. No cyanosis. Pulses are palpable bilaterally. LABORATORY AND DIAGNOSTIC DATA: I personally reviewed all laboratory and diagnostic data in the medical records, and they are as follows. CT of maxillofacial without contrast shows no facial fractures that were evident. The sinuses had left sphenoid sinus mucosal thickening, and dental disease of the residual teeth was noted. Chest x-ray: The impression shows no acute abnormality demonstrated, right arm PICC line with the tip overlying the cavo-atrial junction and tortuous thoracic aorta with atherosclerotic calcifications. No pleural effusion or pneumothorax. Mild diffuse interstitial prominence and lateral left mid lung scarring. Sodium 131, chloride 87, carbon dioxide 38, GFR 73, glucose 166, magnesium 1.2, AST 53, ALT 62, albumin 2.8, globulin 4.5, lipase 44. WBC 0.7, hemoglobin 6.8, hematocrit 19.8, platelets 18, MPV 6.9, neutrophil percent is 0.0, lymphocytes are 0.6. IMPRESSION AND PLAN: 1. Acute on chronic severe anemia secondary to myelodysplastic disorder, with thrombocytopenia. The patient will be admitted inpatient since he does meet criteria with electrolyte imbalances, status post fall with trauma, and the risk for bleed. He will be transfused with 2 units and given 1 unit of platelets since he was active bleeding at that time. We will continue to monitor his CBC with q.6 H and H's x2. He will be pretreated with Tylenol and given Lasix 20 mg IV in between 2 units. We will continue to monitor his electrolytes and CBC, with morning daily lab draws. 2. Obstructive sleep apnea with obesity. BMI greater than 35, with excessive caloric intake. The patient will be on oxygen of 2 liters nasal cannula. He does have a history of respiratory failure and does get breathing treatments. We will keep him on DuoNeb treatments with Respiratory Therapy support to help return his oxygen saturation to his baseline at 2 liters. 3. Posttraumatic stress disorder, chronic. The plan is to continue to monitor the patient's behavior. He does take Prozac, which we will continue at 20 mg a day. 4. Chronic osteoarthritis with secondary frequent falls at home. The plan is to work with Physical and Occupational Therapy. Hydrocodone/acetaminophen p.r.n. as needed for pain. The patient does take prednisone 10 mg a day, which we will continue. He is on vitamin D3 5000 units b.i.d., and will continue folic acid 0.4 mg a day. 5. Secondary hypertension, with tobacco abuse in remission. The plan is to continue the patient on atenolol and continue to monitor vital signs and blood pressure, specifically when receiving the blood transfusions. 6. Chronic gastroesophageal reflux. The plan is to continue Protonix 40 mg a day. 7. Chronic myelodysplastic syndrome, severe, with regular chemotherapy. The plan is for neutropenic precautions. Continue to monitor hemoglobin and hematocrit. The patient does get valacyclovir and Diflucan, which we will continue. We will get a magnesium and phosphorus level daily. Monitor electrolytes. The patient also does receive Lasix 20 mg 2 tabs twice a day, specifically since he does have a risk for congestive heart failure and does also receive regular blood transfusions, and is at risk for pulmonary edema. 8. Acute hypomagnesemia and other electrolyte imbalances. The plan is to continue to monitor the electrolytes. We will give magnesium sulfate 4 mg IV and recheck the magnesium level in the morning. We will also get a phosphorus level. 9. Hyponatremia, with loss. The plan is to give IV fluid, normal saline at KVO, and continue to replace electrolytes, which should improve. The patient also does take Lasix, which has contributed to his electrolyte imbalances. The patient did state that he felt he had been over-diuresed. 10. Hyperglycemia, without diagnosis of diabetes mellitus, acute. The plan is to get a hemoglobin A1c and monitor his blood glucose levels with daily labs. 11. Status. The patient has a FULL CODE status. 12. DVT prophylaxis with foot pumps only, since the patient is anemic and his platelets are low. RISK ASSESSMENT/DISPOSITION: The patient is high risk for worsening comorbidities. He will require more than a 2-midnight stay to correct the electrolytes, as well as correcting the blood through transfusion and platelet. The patient will also need physical therapy support. He will be on IV medication with a high risk for toxicity. His code status was addressed at bedside. Time spent with the patient on admission for planning, education, and assessment was 50 minutes. JOB #: [id number] EXT JOB #:[id number] MACY
[2017-01-29] MEDS: valACYclovir 500 MG TABLET PO SCH (21:08)
[2017-01-29] MEDS: ATENOLOL 25 MG TABLET PO SCH (21:09)
[2017-01-29] MEDS: ALPRAZolam 0.25 MG TABLET PO SCH (21:09)
[2017-01-29] MEDS: BRIMONIDINE 0.2% OPHTH DROPS 5 ML RIGHTEYE SCH (21:10)
[2017-01-29] MEDS: TIMOLOL 0.5% OPHTH DROPS RIGHTEYE SCH (21:18)
[2017-01-29] MEDS: DORZOLAMIDE 2% OPHTH DROPS EACHEYE SCH (21:23)
[2017-01-29] MEDS: SODIUM CHLORIDE FLUSH 0.9% 10 ML SYRINGE IVP SCH (22:37)
[2017-01-30] MEDS: HYDROcod/ACETAM 5/325 MG TABLET PO PRN ×2 (00:29→22:22)
[2017-01-30] MEDS: ACETAMINOPHEN 325 MG TABLET PO PRN ×2 (03:03→18:26)
[2017-01-30] MEDS: SODIUM CHLORIDE FLUSH 0.9% 10 ML SYRINGE IVP PRN ×4 (03:17→18:20)
[2017-01-30] MEDS: SODIUM CHLORIDE 0.9% 1,000 ML IV SCH (05:23)
[2017-01-30] MEDS: SODIUM CHLORIDE FLUSH 0.9% 10 ML SYRINGE IVP SCH ×4 (05:24→18:20)
[2017-01-30 05:59] LABS: BASOPHILS % (AUTO) 0.1 %; EOSINOPHILS % (AUTO) 1.4 %; HCT - HEMATOCRIT 23.2 % (42.0-52.0); LYMPHOCYTES # (AUTO) 1.4 10^3/uL (1.5-3.5); LYMPHOCYTES % (AUTO) 86.7 %; MEAN CORPUSCULAR HEMOGLOBIN 29.8 pg (27.0-31.0); MEAN CORPUSCULAR HGB CONC 34.3 g/dL (32.0-36.0); MEAN CORPUSCULAR VOLUME 86.9 fL (80.0-94.0); MEAN PLATELET VOLUME 6.6 fL (7.4-11.4); MONOCYTES # (AUTO) 0.2 10^3/uL (0.0-1.0); MONOCYTES % (AUTO) 10.5 %; NEUTROPHILS % (AUTO) 1.3 %; NUCLEATED RED BLOOD CELLS AUTO 0.9 /100WBC; RED BLOOD COUNT 2.67 10^6/uL (4.70-6.10); RED CELL DISTRIBUTION WIDTH 16.6 % (12.0-15.0); UNCORRECTED WHITE BLOOD COUNT 1.6 x10^3/uL
[2017-01-30 06:05] LABS: ALBUMIN/GLOBULIN RATIO 0.6 (1.0-2.2); BILIRUBIN,TOTAL 0.9 mg/dL (0.2-1.0); CALCIUM 9.1 mg/dL (8.5-10.3); CREATININE 0.9 mg/dL (0.6-1.2); TOTAL PROTEIN 7.4 g/dL (6.7-8.2)
[2017-01-30 06:06] LABS: WHITE BLOOD COUNT 1.6 x10^3/uL (4.8-10.8)
[2017-01-30 06:30] LABS: PLATELET ESTIMATE, MANUAL DECREASED (<130,000) (NORMAL); PLATELET MORPHOLOGY NORMAL APPEARANCE (NORMAL)
[2017-01-30] MEDS: PANTOPRAZOLE 40 MG VIAL IVP SCH ×2 (06:43→15:58)
[2017-01-30] MEDS: DORZOLAMIDE 2% OPHTH DROPS EACHEYE SCH ×3 (06:44→21:45)
--- NOTE | 2017-01-30 07:19 | Discharge Plan ---
Discharge Plan Disposition: Home, Self Care Condition: Good Prescriptions: Magnesium 250 mg PO DAILY #30 tablet Diet: Cardiac Activity Restrictions: Activity as Tolerated Shower Restrictions: No Driving Restrictions: No Assistance Devices: Walker, Cane Weight Bearing: Full Weight Instruction Topics: Anemia, Hypomagnesemia Dc Additional Instructions or Follow Up instructions: Please take all home medications as prescribed. You had low magnesium. Please take magnesium tablets and you have been given a prescription for magnesium. Continue on your regular diet. Wear your CPAP at night and be sure to get plenty of sleep. 7-8 hours are best Please see your primary care provider as scheduled and let them know you are on magnesium supplements Please get some exercise. Walking is a great form of exercise. Use your walker whenever you are walking so you dont fall Please return to the ER if you get short of breath or chest pain, fever, or return of symptoms. Follow-Up Care: [facility] - Medical No Smoking: If you smoke, Please STOP! Call for help.
--- NOTE | 2017-01-30 07:44 | DISCHARGE SUMMARY ---
"Discharge Summary Admit Date: 01/29/17 Discharge Date: 01/30/17 Discharging Provider: RACHEL SIMONS APRN Code Status: Attempt Resuscitation Condition at Discharge: Good Discharge Disposition: 01 Home, Self Care Discharge Facility Name: HOME - DIAGNOSES Admission Diagnoses: 1. 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 ACUTE FALL AT HOME SAME LEVEL WITH FACIAL LACERATION TO BRIDGE OF NOSE SECONDARY TO ACUTE HYPOMAGNESIUM 3. CHRONIC OBSTRUCTIVE SLEEP APNEA 4. CHRONIC ATRIAL ARRHYTHMIA 5. OBESITY WITH BMI>35 WITH EXCESSIVE CALORIC INTAKE 6. HYPERTENSION,SECONDARY WITH TOBACCO USAGE, IN REMISSION Discharge Diagnoses with Status of Each Condition: 1. 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 ACUTE FALL AT HOME SAME LEVEL WITH FACIAL LACERATION TO BRIDGE OF NOSE SECONDARY TO ACUTE HYPOMAGNESIUM 3. CHRONIC OBSTRUCTIVE SLEEP APNEA 4. CHRONIC ATRIAL ARRHYTHMIA 5. OBESITY WITH BMI>35 WITH EXCESSIVE CALORIC INTAKE 6. HYPERTENSION,SECONDARY WITH TOBACCO USAGE, IN REMISSION - HPI History of Present Illness: Patient is a 76 year old male who presented to the ER with complaint of fall at home using his walker and suffering trauma to his nose and face. CT of head and maxifacial bones is negative for acute fractures. He has mylodysplastic disease and neutropenic with thrombycytopenia. He was admitted for acute anemia of chronic disease and for traumatic fall with blood loss. - CONSULTS | PROCEDURES Consultations: physical therapy Procedures: transfusion with 2 untis of packed red blood cells and with platelets since patient was actively bleeding from fall. - HOSPITAL COURSE Hospital Course: Patient is a 76 year old male who presented to the ER with complaint of fall at home using his walker and suffering trauma to his nose and face. CT of head and maxifacial bones is negative for acute fractures. He has mylodysplastic disease and neutropenic with thrombycytopenia. He was admitted for acute anemia of chronic disease and for traumatic fall with blood loss. He received one unit of packed red blood cells in the ER and continued to have one unit of PRBC after admission. He also received a unit of platelets. He continued on his blood pressure medications atenolol and Lasix. He received a dose of IV Lasix and Tylenol in between the units of blood. He continued on his antibiotics from home and was on fall precautions for the fall. He was on telemetry for atrial arrhythmia. He used CPap at night for MIGUEL. He received IVF NS for hyponatremia and for hydration since patient was mildly dehydrated. He was found to have a low magnesium. Magnesium was replaced with IV magnesium sulfate IV and sent home with a prescription for magnesium replacement Physical therapy worked with patient to assure he was steady on his feet and back to baseline with walker. He will be discharged home today. Patient improved quicker than expected for admission and stated he felt better and wanted to be discharged home. He will be sent home with family assist and instructions to followup with primary care provider this week - ALLERGIES Allergies/Adverse Reactions: Allergies Allergy/AdvReac Type Severity Reaction Status Date / Time morphine Allergy Unknown Unknown Verified 08/04/16 19:06 niacin Allergy Unknown Unknown Verified 08/04/16 19:06 adhesive tape Allergy Hives Verified 08/04/16 19:06 diphenhydramine AdvReac Anxiety Verified 08/04/16 19:06 Bryn Pad Allergy Hives Uncoded 08/04/16 19:06 - MEDICATIONS Home Medications: Ambulatory Orders Medication Instructions Recorded Confirmed ALPRAZolam [Xanax] 0.25 mg PO BID 01/20/15 01/10/17 Furosemide [Lasix] 40 tab PO BID 07/12/15 01/10/17 Sulfamethoxazole/Trimethoprim 160 - 800 mg PO DAILY 02/03/16 01/10/17 [Bactrim Ds Tablet] Valacyclovir HCl [Valacyclovir] 500 mg PO BID 02/03/16 01/10/17 Atenolol [Tenormin] 50 mg PO QPM tablet 08/13/16 01/10/17 FLUoxetine [PROzac] 20 mg PO QPM capsule 08/13/16 01/10/17 Fluconazole [Diflucan] 100 mg PO DAILY tablet 08/13/16 01/10/17 Pantoprazole [Protonix] 40 mg PO QDAC tablet 08/13/16 01/10/17 Hydrocodone/Acetaminophen [[place] 1 tab ORAL BID PRN 08/18/16 01/10/17 5-325 Tablet] Prednisone 10 mg ORAL DAILY 08/18/16 01/10/17 Cholecalciferol [Vitamin D3] 5,000 unit PO DAILY 12/04/16 01/10/17 Folic Acid 0.4 mg PO DAILY 12/04/16 01/10/17 Senna [Senokot] 8.6 mg PO DAILY 12/04/16 01/10/17 Brimonidine Tartrate/Timolol 1 drops RIGHTEYE BID 01/10/17 01/10/17 [Combigan 0.2%-0.5% Eye Drops] Dorzolamide 2% Ophth Drops 1 drops EACHEYE TID 01/10/17 01/10/17 [Trusopt 2% Ophth Drops] Ipratropium/Albuterol Sulfate 3 ml IH BID PRN 01/10/17 01/10/17 [Iprat-Albut 0.5-3(2.5) mg/3 ml] Latanoprost 1 drops EACHEYE DAILY PM 01/10/17 01/10/17 Magnesium 250 mg PO DAILY #30 tablet 01/30/17 - PHYSICAL EXAM AT DISCHARGE General Appearance: positive: No acute distress, Alert Eyes Bilateral: positive: Normal inspection, PERRL, EOMI ENT: positive: ENT inspection nml, Pharynx nml, No signs of dehydration Neck: positive: Nml inspection, Thyroid nml, No JVD, Trachea midline Respiratory: positive: Chest non-tender, No respiratory distress, Breath sounds nml Cardiovascular: positive: Regular rate & rhythm, No murmur, No gallop Peripheral Pulses: positive: 2+ Abdomen: positive: Non-tender, No organomegaly, Nml bowel sounds, No distention , Other (obese). negative: Guarding, Rebound Rectal: positive: Non-tender Back: positive: Nml inspection. negative: CVA tenderness (R) Skin: positive: Color nml, Warm, Dry Extremities: positive: Non-tender, Full ROM, Nml appearance, No pedal edema Neurologic/Psychiatric: positive: Oriented x3, CN's nml (2-12), Motor nml, Sensation nml, Mood/affect nml - LABS Result Diagrams: 01/30/17 05:21 01/30/17 05:21 Other Lab Results: Abnormal Lab Results 01/29/17 01/29/17 01/29/17 14:06 14:06 14:06 WBC 0.7 x10^3/uL L* x10^3/uL (4.8-10.8) RBC 2.28 10^6/uL L 10^6/uL (4.70-6.10) Hgb 6.8 g/dL L* g/dL (14.0-18.0) Hct 19.8 % L* % (42.0-52.0) RDW Plt Count 18 10^3/uL L* 10^3/uL (130-450) MPV 6.9 fL L fL (7.4-11.4) Neut # Lymph # Neutrophils # (Manual) 0.0 10^3/uL L* 10^3/uL (1.5-6.6) Lymphocytes # (Manual) 0.6 10^3/uL L 10^3/uL (1.5-3.5) Sodium 131 mmol/L L mmol/L (135-145) Chloride 87 mmol/L L mmol/L (101-111) Carbon Dioxide 38 mmol/L H mmol/L (21-32) Estimated GFR (MDRD) 73 L (>89) Glucose 166 mg/dL H mg/dL (70-100) Magnesium 1.2 mg/dL L mg/dL (1.7-2.8) AST 53 IU/L H IU/L (10-42) ALT 62 IU/L H IU/L (10-60) Albumin 2.8 g/dL L g/dL (3.2-5.5) Globulin 4.5 g/dL H g/dL (2.1-4.2) Albumin/Globulin Ratio 0.6 L (1.0-2.2) Urine Occult Blood Urine RBC Crossmatch See Detail 01/29/17 01/30/17 01/30/17 19:13 05:21 05:21 WBC 1.6 x10^3/uL L* x10^3/uL (4.8-10.8) RBC 2.67 10^6/uL L 10^6/uL (4.70-6.10) Hgb 8.0 g/dL L g/dL (14.0-18.0) Hct 23.2 % L % (42.0-52.0) RDW 16.6 % H % (12.0-15.0) Plt Count 43 10^3/uL L 10^3/uL (130-450) MPV 6.6 fL L fL (7.4-11.4) Neut # 0.0 10^3/uL L* 10^3/uL (1.5-6.6) Lymph # 1.4 10^3/uL L 10^3/uL (1.5-3.5) Neutrophils # (Manual) Lymphocytes # (Manual) Sodium 133 mmol/L L mmol/L (135-145) Chloride 89 mmol/L L mmol/L (101-111) Carbon Dioxide 38 mmol/L H mmol/L (21-32) Estimated GFR (MDRD) 82 L (>89) Glucose 110 mg/dL H mg/dL (70-100) Magnesium AST 48 IU/L H IU/L (10-42) ALT Albumin 2.8 g/dL L g/dL (3.2-5.5) Globulin 4.6 g/dL H g/dL (2.1-4.2) Albumin/Globulin Ratio 0.6 L (1.0-2.2) Urine Occult Blood SMALL H (NEGATIVE) Urine RBC 6-10 /HPF H /HPF (0-5) Crossmatch - FOLLOW UP Follow Up: PATIENT WAS INSTRUCTED TO FOLLOWUP WITH PRIMARY CARE AND HAS A APPOINTMENT AT [facility] [place] PATIENT VERBALLY UNDERSTOOD ORDERS AND STABLE TO GO HOME - TIME SPENT Time Spent in Discharge (Minutes): 45 (FOR DISCHARGE ASSESSMENT AND PLANNING)"
[2017-01-30] MEDS ORDERED: ATENOLOL 25 MG TABLET PO SCH (09:00)
[2017-01-30] MEDS ORDERED: FUROSEMIDE 40 MG TABLET PO SCH (09:00)
[2017-01-30] MEDS ORDERED: FLUoxetine 10 MG CAPSULE PO SCH ×2 (09:00→21:00)
[2017-01-30] MEDS: IPRATROPIUM/ALBUTEROL 3 ML NEB INH PRN ×2 (09:30→20:10)
[2017-01-30 10:10] LABS: BASOPHILS % (AUTO) 0.3 %; EOSINOPHILS % (AUTO) 0.4 %; HCT - HEMATOCRIT 24.6 % (42.0-52.0); HGB - HEMOGLOBIN 8.4 g/dL (14.0-18.0); LYMPHOCYTES # (AUTO) 1.4 10^3/uL (1.5-3.5); MEAN CORPUSCULAR HEMOGLOBIN 29.9 pg (27.0-31.0); MEAN CORPUSCULAR HGB CONC 34.2 g/dL (32.0-36.0); MEAN CORPUSCULAR VOLUME 87.3 fL (80.0-94.0); MEAN PLATELET VOLUME 6.8 fL (7.4-11.4); MONOCYTES # (AUTO) 0.1 10^3/uL (0.0-1.0); NEUTROPHILS % (AUTO) 1.3 %; NUCLEATED RED BLOOD CELLS AUTO 1.2 /100WBC; RED BLOOD COUNT 2.82 10^6/uL (4.70-6.10); RED CELL DISTRIBUTION WIDTH 16.3 % (12.0-15.0); UNCORRECTED WHITE BLOOD COUNT 1.5 x10^3/uL
[2017-01-30 10:16] LABS: WHITE BLOOD COUNT 1.5 x10^3/uL (4.8-10.8)
[2017-01-30] MEDS: valACYclovir 500 MG TABLET PO SCH ×2 (10:22→21:40)
[2017-01-30] MEDS: FLUCONAZOLE 100 MG TABLET PO SCH (10:22)
[2017-01-30] MEDS: ALPRAZolam 0.25 MG TABLET PO SCH ×2 (10:22→21:39)
[2017-01-30] MEDS: CHOLECALCIFEROL 5,000 UNIT CAPSULE PO SCH (10:22)
[2017-01-30] MEDS: BRIMONIDINE 0.2% OPHTH DROPS 5 ML RIGHTEYE SCH ×2 (10:23→21:43)
[2017-01-30] MEDS: POLYETHYLENE GLYCOL 3350 17 GM PACKET PO SCH (10:24)
[2017-01-30] MEDS: SENNA 8.6 MG TABLET PO SCH (10:24)
[2017-01-30] MEDS: TIMOLOL 0.5% OPHTH DROPS RIGHTEYE SCH ×2 (10:26→21:41)
[2017-01-30] MEDS: FOLIC ACID 1 MG TABLET PO SCH (10:26)
[2017-01-30 10:30] LABS: ALBUMIN/GLOBULIN RATIO 0.7 (1.0-2.2); BILIRUBIN,TOTAL 0.9 mg/dL (0.2-1.0); CALCIUM 9.1 mg/dL (8.5-10.3); POTASSIUM 4.2 mmol/L (3.5-5.0); TOTAL PROTEIN 7.4 g/dL (6.7-8.2)
[2017-01-30] MEDS ORDERED: SODIUM CHLORIDE 0.9% 500 ML IV ONE (12:00)
--- NOTE | 2017-01-30 14:24 | PROVIDER PROGRESS NOTE ---
Subjective - Prog Note Date Prog Note Date: 01/30/17 Prog Note Time: 14:22 - Subjective Pt reports feeling: Improved Subjective: Patient was scheduled to be discharged home today but blood pressure was low and so he asked to stay another day. he is able to sit down and feel ok but then he stands and he feels like he wants to fall. He has worked with physical therapy and he was still weak. no chest pain or fever. no nausea or vomiting. Current Medications - Current Medications Current Medications: Active Medications Generic Name Dose Route Start Last Admin Trade Name Freq PRN Reason Stop Dose Admin Acetaminophen 650 mg 01/29/17 16:53 01/30/17 03:03 Tylenol PO 650 mg Q4HR PRN Administration Pain 1 to 4 Acetaminophen/Hydrocodone Bitart 1 tab 01/29/17 18:48 01/30/17 00:29 [place] 5/325 PO 1 tab Q4HR PRN Administration PAIN Albuterol/Ipratropium 3 ml 01/29/17 17:05 01/30/17 09:30 Duoneb INH 3 ml BID PRN Administration Bronchospasm Alprazolam 0.25 mg 01/29/17 21:00 01/30/17 10:22 Xanax PO 0.25 mg BID BIMAL Administration Alprazolam 0.25 mg 01/29/17 18:47 Xanax PO Q6HR PRN Anxiety Atenolol 50 mg 01/29/17 21:00 01/29/17 21:09 Tenormin PO 50 mg QPM BIMAL Administration Brimonidine Tartrate 1 drops 01/29/17 21:00 01/30/17 10:23 [place] P 0.2% Ophth Drops RIGHTEYE 1 drops BID BIMAL Administration Cholecalciferol 5,000 unit 01/30/17 09:00 01/30/17 10:22 Vitamin D3 PO 5,000 unit DAILY BIMAL Administration Dorzolamide HCl 1 drops 01/29/17 22:00 01/30/17 06:44 Trusopt 2% Ophth Drops EACHEYE 1 drops TID BIMAL Administration Fluconazole 100 mg 01/30/17 09:00 01/30/17 10:22 Diflucan PO 100 mg DAILY BIMAL Administration Fluoxetine HCl 20 mg 01/30/17 21:00 Prozac PO QPM BIMAL Folic Acid 1 mg 01/30/17 09:00 01/30/17 10:26 PO 1 mg DAILY BIMAL Administration Furosemide 20 mg 01/29/17 17:02 01/29/17 22:37 Lasix Inj 20mg Vial IVP 01/30/17 17:01 20 mg ONCE PRN Administration Between units Furosemide 20 mg 01/30/17 21:00 Lasix PO BID BIMAL Sodium Chloride 1,000 mls @ 80 mls/hr 01/29/17 17:00 01/30/17 05:23 Normal Saline 0.9% IV Not Given .[id number] BIMAL Ondansetron HCl 4 mg 01/29/17 16:53 Zofran Odt TL Q6HR PRN Nausea / Vomiting Pantoprazole Sodium 40 mg 01/29/17 17:00 01/30/17 06:43 Protonix IVP 40 mg BIDAC BIMAL Administration Polyethylene Glycol 17 gm 01/30/17 09:00 01/30/17 10:24 Miralax PO Not Given DAILY BIMAL Senna 8.6 mg 01/30/17 09:00 01/30/17 10:24 Senokot PO Not Given DAILY BIMAL Sodium Chloride 10 ml 01/29/17 16:53 01/30/17 05:24 Normal Saline Flush 0.9% IVP 20 ml PRN PRN Administration NEEDED PER PROVIDER ORDERS Sodium Chloride 10 ml 01/29/17 22:00 01/30/17 06:43 Normal Saline Flush 0.9% IVP 10 ml Q8HR BIMAL Administration Timolol Maleate 1 drops 01/29/17 21:00 01/30/17 10:26 Timoptic 0.5% Ophth Drops RIGHTEYE 1 drops BID BIMAL Administration Valacyclovir HCl 500 mg 01/29/17 21:00 01/30/17 10:22 Valtrex PO 500 mg BID BIMAL Administration ALPRAZolam [Xanax] 0.25 mg PO BID PRN 01/20/15 Furosemide [Lasix] 40 tab PO BID 07/12/15 Valacyclovir HCl [Valacyclovir] 500 mg PO DAILY 02/03/16 Prednisone 10 mg ORAL DAILY 08/18/16 Cholecalciferol [Vitamin D3] 5,000 unit PO DAILY 12/04/16 Folic Acid 0.4 mg PO DAILY 12/04/16 Senna [Senokot] 8.6 mg PO DAILY 12/04/16 Brimonidine Tartrate/Timolol [Combigan 0.2%-0.5% Eye Drops] 1 drops RIGHTEYE BID 01/10/17 Dorzolamide 2% Ophth Drops [Trusopt 2% Ophth Drops] 1 drops EACHEYE TID Ipratropium/Albuterol Sulfate [Iprat-Albut 0.5-3(2.5) mg/3 ml] 3 ml IH BID PRN 01/10/17 Latanoprost 1 drops EACHEYE DAILY PM 01/10/17 Objective - Vital Signs/Intake & Output Reviewed Vital Signs: Yes Vital Signs: Vital Signs x48h Temp Pulse Pulse Pulse Resp BP BP 01/30/17 12:36 84/67 L 01/30/17 11:51 36.4 C L 78 20 87/62 L 01/30/17 10:40 90 91/65 01/30/17 09:30 86 20 01/30/17 08:00 36.5 C 84 18 119/81 H Pulse Ox 01/30/17 12:36 01/30/17 11:51 94 01/30/17 10:40 01/30/17 09:30 01/30/17 08:00 97 Intake & Output: Intake & Output 01/27/17 01/28/17 01/29/17 01/30/17 23:59 23:59 23:59 23:59 Intake Total 1241 2115 Output Total 775 1785 Balance 466 330 - Objective General Appearance: positive: No acute distress, Alert Eyes Bilateral: positive: Normal inspection, PERRL ENT: positive: ENT inspection nml, Pharynx nml, No signs of dehydration Neck: positive: Nml inspection, Thyroid nml, No JVD, Trachea midline Respiratory: positive: Chest non-tender, No respiratory distress Cardiovascular: positive: No murmur, No gallop, Bradycardia Abdomen: positive: Non-tender, No organomegaly, Nml bowel sounds. negative: Guarding, Rebound Back: positive: Nml inspection. negative: CVA tenderness (R), CVA tenderness (L ) Skin: positive: Color nml, No rash, Warm, Dry Extremities: positive: Non-tender, Full ROM, Nml appearance Neurologic/Psychiatric: positive: Oriented x3, CN's nml (2-12), Motor nml, Sensation nml, Mood/affect nml, Weakness - Lab Results Fish Bones: 01/30/17 09:00 01/30/17 09:00 Other Labs: Lab Results x24hrs 01/30/17 01/30/17 01/30/17 Range/Units 09:00 09:00 05:21 WBC 1.5 L* (4.8-10.8) x10^3/uL RBC 2.82 L (4.70-6.10) 10^6/uL Hgb 8.4 L (14.0-18.0) g/dL Hct 24.6 L (42.0-52.0) % MCV 87.3 (80.0-94.0) fL MCH 29.9 (27.0-31.0) pg MCHC 34.2 (32.0-36.0) g/dL RDW 16.3 H (12.0-15.0) % Plt Count 44 L (130-450) 10^3/uL MPV 6.8 L (7.4-11.4) fL Neut # 0.0 L* (1.5-6.6) 10^3/uL Lymph # 1.4 L (1.5-3.5) 10^3/uL [place] # 0.1 (0.0-1.0) 10^3/uL Eos # 0.0 (0.0-0.7) 10^3/uL Baso # 0.0 (0.0-0.1) 10^3/uL Absolute Nucleated RBC 0.02 x10^3/uL Nucleated RBCs 1.2 /100WBC Manual Slide Review Platelet Estimate (NORMAL) Platelet Morphology (NORMAL) RBC Morph Micro Appear (NORMAL) Sodium 136 (135-145) mmol/L Potassium 4.2 (3.5-5.0) mmol/L Chloride 91 L (101-111) mmol/L Carbon Dioxide 40 H* (21-32) mmol/L Anion Gap 5.0 L (6-13) BUN 18 (6-20) mg/dL Creatinine 1.0 (0.6-1.2) mg/dL Estimated GFR (MDRD) 73 L (>89) Glucose 105 H (70-100) mg/dL Calcium 9.1 (8.5-10.3) mg/dL Phosphorus (2.5-4.6) mg/dL Magnesium 2.2 (1.7-2.8) mg/dL Total Bilirubin 0.9 (0.2-1.0) mg/dL AST 49 H (10-42) IU/L ALT 61 H (10-60) IU/L Alkaline Phosphatase 59 (42-121) IU/L Lactate Dehydrogenase (91-225) IU/L Total Protein 7.4 (6.7-8.2) g/dL Albumin 3.0 L (3.2-5.5) g/dL Globulin 4.4 H (2.1-4.2) g/dL Albumin/Globulin Ratio 0.7 L (1.0-2.2) Urine Color Urine Clarity (CLEAR) Urine pH (5.0-7.5) PH Ur Specific [place] (1.002-1.030) Urine Protein (NEGATIVE) mg/dL Urine Glucose (UA) (NEGATIVE) mg/dL Urine Ketones (NEGATIVE) mg/dL Urine Occult Blood (NEGATIVE) Urine Nitrite (NEGATIVE) Urine Bilirubin (NEGATIVE) Urine Urobilinogen (NORMAL) E.U./dL Ur Leukocyte Esterase (NEGATIVE) Urine RBC (0-5) /HPF Urine WBC (0-3) /HPF Ur Squamous Epith Cells (<= Few) Urine Bacteria (None Seen) /HPF Ur Microscopic Review Urine Culture Comments 01/30/17 01/30/17 01/30/17 Range/Units 05:21 05:21 05:21 WBC (4.8-10.8) x10^3/uL RBC (4.70-6.10) 10^6/uL Hgb (14.0-18.0) g/dL Hct (42.0-52.0) % MCV (80.0-94.0) fL MCH (27.0-31.0) pg MCHC (32.0-36.0) g/dL RDW (12.0-15.0) % Plt Count (130-450) 10^3/uL MPV (7.4-11.4) fL Neut # (1.5-6.6) 10^3/uL Lymph # (1.5-3.5) 10^3/uL [place] # (0.0-1.0) 10^3/uL Eos # (0.0-0.7) 10^3/uL Baso # (0.0-0.1) 10^3/uL Absolute Nucleated RBC x10^3/uL Nucleated RBCs /100WBC Manual Slide Review Platelet Estimate (NORMAL) Platelet Morphology (NORMAL) RBC Morph Micro Appear (NORMAL) Sodium 133 L (135-145) mmol/L Potassium 4.0 (3.5-5.0) mmol/L Chloride 89 L (101-111) mmol/L Carbon Dioxide 38 H (21-32) mmol/L Anion Gap 6.0 (6-13) BUN 20 (6-20) mg/dL Creatinine 0.9 (0.6-1.2) mg/dL Estimated GFR (MDRD) 82 L (>89) Glucose 110 H (70-100) mg/dL Calcium 9.1 (8.5-10.3) mg/dL Phosphorus 4.6 (2.5-4.6) mg/dL Magnesium (1.7-2.8) mg/dL Total Bilirubin 0.9 (0.2-1.0) mg/dL AST 48 H (10-42) IU/L ALT 57 (10-60) IU/L Alkaline Phosphatase 59 (42-121) IU/L Lactate Dehydrogenase 180 (91-225) IU/L Total Protein 7.4 (6.7-8.2) g/dL Albumin 2.8 L (3.2-5.5) g/dL Globulin 4.6 H (2.1-4.2) g/dL Albumin/Globulin Ratio 0.6 L (1.0-2.2) Urine Color Urine Clarity (CLEAR) Urine pH (5.0-7.5) PH Ur Specific [place] (1.002-1.030) Urine Protein (NEGATIVE) mg/dL Urine Glucose (UA) (NEGATIVE) mg/dL Urine Ketones (NEGATIVE) mg/dL Urine Occult Blood (NEGATIVE) Urine Nitrite (NEGATIVE) Urine Bilirubin (NEGATIVE) Urine Urobilinogen (NORMAL) E.U./dL Ur Leukocyte Esterase (NEGATIVE) Urine RBC (0-5) /HPF Urine WBC (0-3) /HPF Ur Squamous Epith Cells (<= Few) Urine Bacteria (None Seen) /HPF Ur Microscopic Review Urine Culture Comments 09/19/17 09/18/17 Range/Units 05:21 19:13 WBC 1.6 L* (4.8-10.8) x10^3/uL RBC 2.67 L (4.70-6.10) 10^6/uL Hgb 8.0 L (14.0-18.0) g/dL Hct 23.2 L (42.0-52.0) % MCV 86.9 (80.0-94.0) fL MCH 29.8 (27.0-31.0) pg MCHC 34.3 (32.0-36.0) g/dL RDW 16.6 H (12.0-15.0) % Plt Count 43 L (130-450) 10^3/uL MPV 6.6 L (7.4-11.4) fL Neut # 0.0 L* (1.5-6.6) 10^3/uL Lymph # 1.4 L (1.5-3.5) 10^3/uL [place] # 0.2 (0.0-1.0) 10^3/uL Eos # 0.0 (0.0-0.7) 10^3/uL Baso # 0.0 (0.0-0.1) 10^3/uL Absolute Nucleated RBC 0.02 x10^3/uL Nucleated RBCs 0.9 /100WBC Manual Slide Review Indicated Platelet Estimate DECREASED (<130,000) (NORMAL) Platelet Morphology NORMAL APPEARANCE (NORMAL) RBC Morph Micro Appear 1+ ANISOCYTOSIS (NORMAL) Sodium (135-145) mmol/L Potassium (3.5-5.0) mmol/L Chloride (101-111) mmol/L Carbon Dioxide (21-32) mmol/L Anion Gap (6-13) BUN (6-20) mg/dL Creatinine (0.6-1.2) mg/dL Estimated GFR (MDRD) (>89) Glucose (70-100) mg/dL Calcium (8.5-10.3) mg/dL Phosphorus (2.5-4.6) mg/dL Magnesium (1.7-2.8) mg/dL Total Bilirubin (0.2-1.0) mg/dL AST (10-42) IU/L ALT (10-60) IU/L Alkaline Phosphatase (42-121) IU/L Lactate Dehydrogenase (91-225) IU/L Total Protein (6.7-8.2) g/dL Albumin (3.2-5.5) g/dL Globulin (2.1-4.2) g/dL Albumin/Globulin Ratio (1.0-2.2) Urine Color YELLOW Urine Clarity CLEAR (CLEAR) Urine pH 6.5 (5.0-7.5) PH Ur Specific [place] <=1.005 (1.002-1.030) Urine Protein NEGATIVE (NEGATIVE) mg/dL Urine Glucose (UA) NEGATIVE (NEGATIVE) mg/dL Urine Ketones NEGATIVE (NEGATIVE) mg/dL Urine Occult Blood SMALL H (NEGATIVE) Urine Nitrite NEGATIVE (NEGATIVE) Urine Bilirubin NEGATIVE (NEGATIVE) Urine Urobilinogen 0.2 (NORMAL) (NORMAL) E.U./dL Ur Leukocyte Esterase NEGATIVE (NEGATIVE) Urine RBC 6-10 H (0-5) /HPF Urine WBC 0-3 (0-3) /HPF Ur Squamous Epith Cells NONE SEEN (<= Few) Urine Bacteria Rare (None Seen) /HPF Ur Microscopic Review INDICATED Urine Culture Comments NOT INDICATED - Diagnostic Imaging Diagnostic Imaging Results: positive: Final report reviewed Assessment/Plan - Problem List (1) Anemia of chronic illness Impression: acute on chronic with mylodysplastic disease. will give one more unit of blood per request for patient who states he is still weak and maybe another unit will help his blood pressure. continue with oxygen and on telemetry. monitor CBC daily labs (2) Generalized weakness Impression: acute with hypotension orthostatic. patient received 1 liter of fluid and was still weak and orthostatic. is now wanting another day stay. will go home tomorrow if blood pressure stable. will transfuse one more unit of packed red blood cells. (3) Facial contusion Impression: acute and resolving. continue to monitor his pain and norco as needed for pain Qualifiers: Encounter type: initial encounter Qualified Code(s): S00.83XA - Contusion of other part of head, initial encounter (4) Myelodysplastic syndrome Impression: chronic. monitor CBC and will transfuse another unit. platelets are stable at 43
[2017-01-30] MEDS ORDERED: SODIUM CHLORIDE 0.9% 1,000 ML IV SCH (15:55)
[2017-01-30] MEDS ORDERED: SODIUM CHLORIDE 0.9% 250 ML IV ONE (18:02)
[2017-01-30] MEDS ORDERED: LATANOPROST 0.005% OPHTH DROPS EACHEYE SCH (21:00)
[2017-01-30] MEDS ORDERED: FUROSEMIDE 20 MG TABLET PO SCH (21:00)
[2017-01-30] MEDS ORDERED: IPRATROPIUM/ALBUTEROL 3 ML NEB INH PRN (21:23)
[2017-01-30] MEDS: ATENOLOL 25 MG TABLET PO SCH (21:39)
[2017-01-30] MEDS: FUROSEMIDE 20 MG/2 ML VIAL IVP SCH (22:30)
[2017-01-31] MEDS: SODIUM CHLORIDE FLUSH 0.9% 10 ML SYRINGE IVP PRN ×2 (04:38→09:21)
[2017-01-31] MEDS: SODIUM CHLORIDE FLUSH 0.9% 10 ML SYRINGE IVP SCH (04:38)
[2017-01-31] MEDS: HYDROcod/ACETAM 5/325 MG TABLET PO PRN (05:31)
[2017-01-31] MEDS: DORZOLAMIDE 2% OPHTH DROPS EACHEYE SCH (06:45)
[2017-01-31] MEDS ORDERED: IPRATROPIUM/ALBUTEROL 3 ML NEB INH SCH (07:00)
[2017-01-31] MEDS ORDERED: PANTOPRAZOLE 40 MG TABLET PO SCH (07:00)
[2017-01-31] MEDS ORDERED: MAGNESIUM SULFATE 2 GRAM 50 ML IV ONE (07:48)
[2017-01-31 08:17] LABS: BASOPHILS % (AUTO) 0.3 %; EOSINOPHILS % (AUTO) 0.7 %; HCT - HEMATOCRIT 25.1 % (42.0-52.0); HGB - HEMOGLOBIN 8.5 g/dL (14.0-18.0); LYMPHOCYTES % (AUTO) 70.8 %; MEAN CORPUSCULAR HEMOGLOBIN 29.7 pg (27.0-31.0); MEAN CORPUSCULAR HGB CONC 33.8 g/dL (32.0-36.0); MEAN CORPUSCULAR VOLUME 87.7 fL (80.0-94.0); MEAN PLATELET VOLUME 6.9 fL (7.4-11.4); MONOCYTES % (AUTO) 24.9 %; NEUTROPHILS % (AUTO) 3.3 %; RED BLOOD COUNT 2.86 10^6/uL (4.70-6.10); RED CELL DISTRIBUTION WIDTH 15.9 % (12.0-15.0); UNCORRECTED WHITE BLOOD COUNT 1.4 x10^3/uL
[2017-01-31 08:23] LABS: WHITE BLOOD COUNT 1.4 x10^3/uL (4.8-10.8)
[2017-01-31 08:31] LABS: BAND NEUTROPHILS % (MANUAL) 0 %
[2017-01-31 08:38] LABS: LYMPHOCYTES % (MANUAL) 58 %; NP AUTO DIFFERENTIAL? YES; NP MAN DIFFERENTIAL? NO; TOTAL CELLS COUNTED 100
[2017-01-31 08:40] LABS: EOSINOPHILS % (MANUAL) 0 %; NEUTROPHILS % (MANUAL) 0 %
[2017-01-31] MEDS ORDERED: predniSONE 10 MG TABLET PO SCH (09:00)
[2017-01-31 09:32] LABS: BASOPHILS % (AUTO) 0.2 %; EOSINOPHILS % (AUTO) 1.4 %; HCT - HEMATOCRIT 26.1 % (42.0-52.0); HGB - HEMOGLOBIN 8.8 g/dL (14.0-18.0); LYMPHOCYTES # (AUTO) 1.1 10^3/uL (1.5-3.5); LYMPHOCYTES % (AUTO) 78.1 %; MEAN CORPUSCULAR HEMOGLOBIN 29.6 pg (27.0-31.0); MEAN CORPUSCULAR HGB CONC 33.6 g/dL (32.0-36.0); MEAN PLATELET VOLUME 6.5 fL (7.4-11.4); MONOCYTES # (AUTO) 0.3 10^3/uL (0.0-1.0); MONOCYTES % (AUTO) 17.7 %; NEUTROPHILS % (AUTO) 2.6 %; NUCLEATED RED BLOOD CELLS AUTO 0.5 /100WBC; RED BLOOD COUNT 2.97 10^6/uL (4.70-6.10); RED CELL DISTRIBUTION WIDTH 15.9 % (12.0-15.0); UNCORRECTED WHITE BLOOD COUNT 1.4 x10^3/uL
[2017-01-31 09:44] LABS: ALBUMIN/GLOBULIN RATIO 0.6 (1.0-2.2); BILIRUBIN,TOTAL 0.4 mg/dL (0.2-1.0); CALCIUM 9.2 mg/dL (8.5-10.3); CREATININE 0.8 mg/dL (0.6-1.2); POTASSIUM 4.6 mmol/L (3.5-5.0); TOTAL PROTEIN 7.1 g/dL (6.7-8.2)
[2017-01-31 09:50] LABS: WHITE BLOOD COUNT 1.4 x10^3/uL (4.8-10.8)
[2017-01-31] MEDS: valACYclovir 500 MG TABLET PO SCH (10:11)
[2017-01-31] MEDS: FUROSEMIDE 20 MG/2 ML VIAL IVP SCH (10:11)
[2017-01-31] MEDS: ALPRAZolam 0.25 MG TABLET PO SCH (10:11)
[2017-01-31] MEDS: FOLIC ACID 1 MG TABLET PO SCH (10:12)
[2017-01-31] MEDS: FLUCONAZOLE 100 MG TABLET PO SCH (10:12)
[2017-01-31] MEDS: CHOLECALCIFEROL 5,000 UNIT CAPSULE PO SCH (10:12)
[2017-01-31] MEDS: SENNA 8.6 MG TABLET PO SCH (10:13)
[2017-01-31] MEDS: POLYETHYLENE GLYCOL 3350 17 GM PACKET PO SCH (10:13)
[2017-01-31] MEDS: BRIMONIDINE 0.2% OPHTH DROPS 5 ML RIGHTEYE SCH (10:15)
[2017-01-31] MEDS: TIMOLOL 0.5% OPHTH DROPS RIGHTEYE SCH (10:16)
[2017-01-31 10:55] VITALS: BP 103/64
--- NOTE | 2017-01-31 12:27 | DISCHARGE SUMMARY ---
DATE OF ADMISSION: 01/29/2017 DATE OF DISCHARGE: 01/31/2017 ADMITTING DIAGNOSES 1. Acute fall with facial trauma. 2. Myelodysplastic disease with anemia. 3. Generalized weakness secondary to symptomatic anemia. 4. Acute contusion of chest wall, initial encounter. 5. Low blood magnesium. 6. Hyponatremia with other electrolyte imbalances from loss. 7. Acute on chronic thrombocytopenia. DISCHARGE DIAGNOSES 1. Acute symptomatic anemia secondary to chronic myelodysplastic syndrome. 2. Acute fall, same level at home, with contusion of the right front wall thorax and maxillofacial lesion of the face. 3. Acute on chronic thrombocytopenia. 4. Acute low magnesium level. 5. Hyponatremia with electrolyte imbalances. 6. Transaminitis, unspecified. 7. Morbid obesity with body mass index greater than 40. 8. Generalized weakness with falling episodes, initial encounter. CONSULTATIONS: Physical Therapy and Respiratory Therapy. PROCEDURES 1. Chest x-ray, impression: Shows no acute abnormality. 2. Facial bone CT, impression: Shows no facial fractures evident. 3. EKG, impression: Shows atrial flutter with incomplete right bundle branch block. HOSPITAL COURSE AND TREATMENT: The patient is a 76-year-old, obese, pleasant male who was admitted to the hospitalist service after he felt weak. He stated his legs gave out when he was getting up to go to the bathroom while at home. The patient then succumbed to a fall face forward despite using his walker, struck his right chest and face. Had a bloody nose for several minutes. At that time, the family decided to bring him into the ER for further evaluation. The patient does have an underlying medical history that did include myelodysplastic syndrome, osteoarthritis, chronic back pain, hypertension, atrial fibrillation, sleep apnea, obesity, GERD, posttraumatic stress disorder and anxiety. He has chronic anemia of chronic disease, myelodysplastic disease and syndrome. The patient was admitted for transfusion after being found to have a hemoglobin at 6.8. The patient does receive transfusions frequently and is seen at the [facility] clinic. The patient did have a PICC line in the upper right arm, which was placed by the [facility] clinic for weekly blood draws and weekly blood transfusions. At the time of admission, the patient's hemoglobin was 6.8 with a hematocrit of 19.8, white blood cell count 0.7, platelets were at 18 since the patient was actively bleeding at the time and after suffering facial trauma, it was decided that he would receive 1 unit of platelets, along with 2 units of packed red blood cells. The patient did receive 1 unit of packed red blood cells while in the ER and then received another unit on the floor. The patient to continue home medications of Xanax, Lasix, valacyclovir, Prozac, Diflucan, [place], vitamin D3, prednisone and eyedrops. Respiratory Therapy did assess the patient and he continued on his home dose of breathing treatments, ipratropium, albuterol sulfate at 2.5 mg, 3 mL dosage. The patient was also given Lasix IV in between units of blood. He does regularly take 40 mg tablets p.o. b.i.d. Physical Therapy did evaluate the patient the day before discharge and recommended that the patient continue with physical therapy outpatient since he still continues to remain weak. Magnesium level was found to be 1.1 at the time of admission. The patient was given 4 grams of magnesium sulfate. The level improved to 2.0 on the day of discharge. The patient's hemoglobin on the day of discharge was 8.8 and per nursing, the patient was up and ambulating and vital signs were stable. Last blood pressure at approximately 2 hours before discharge was 103/64, heart rate 78, temperature 36.9, respirations 18, and oxygen was 99% on 2 liters nasal cannula. The patient does have home oxygen that he does use at 2-3 liters nasal cannula. The patient states that he did feel less weak today. He did complain of leg pain bilaterally. He states this is nothing new. Seems to be a little bit worse this morning. Magnesium was given , which should help to improve some of the pain in the lower extremities. The patient was also given a prescription for magnesium at home. The patient was given a 5-day supply of [place] since he stated that he was not able to get to his primary care before then to get a refill on his pain medication. The patient was to see the [facility] clinic today for a repeat blood draw with an appointment at 3 p.m. today. Since the patient did have a recent blood draw this morning, the patient was told he would not need a repeat at the [facility] clinic and would send over the laboratory data with him at discharge. The patient's family was to take him home. The patient's vital signs were stable, and the patient was given a verbal instructions by nursing and by this author at the time of discharge. The patient was told to follow up with primary care provider within the first day or 2 from discharge. MEDICATIONS AT TIME OF DISCHARGE 1. Folic acid 0.4 mg p.o. daily. 2. Ipratropium, Albuterol sulfate 3 mL inhaled b.i.d. as needed. 3. Lasix 40 tablet p.o. b.i.d. 4. Latanoprost 2.5 mL drops. 5. Prednisone 10 mg oral daily. 6. Senna 8.6 mg p.o. daily. 7. Valacyclovir 500 mg p.o. daily. 8. Dorzolamide opthamolic drops, 1 drop to each eye. 9. Vitamin D3 5000 units p.o. daily. 10. Xanax 0.25 mg p.o. b.i.d. 11. [place] 5/325 mg 1 tab p.o. q.4h. p.r.n. for pain. 12. Magnesium 250 mg p.o. b.i.d. 13. Prozac 20 mg p.o. at night. 14. Protonix 40 mg p.o. daily. 15. Atenolol 50 mg p.o. at night. General Appearance: positive: No acute distress, Alert Eyes Bilateral: positive: Normal inspection, PERRL, EOMI ENT: positive: ENT inspection nml, Pharynx nml, No signs of dehydration Neck: positive: Nml inspection, Thyroid nml, No JVD, Trachea midline Respiratory: positive: Chest non-tender, No respiratory distress, Breath sounds nml Cardiovascular: positive: Regular rate & rhythm, No murmur, No gallop Peripheral Pulses: positive: 2+ Abdomen: positive: Non-tender, No organomegaly, Nml bowel sounds, No distention , Other (obese). negative: Guarding, Rebound Rectal: positive: Non-tender Back: positive: Nml inspection. negative: CVA tenderness (R) Skin: positive: Color nml, Warm, Dry Extremities: positive: Non-tender, Full ROM, Nml appearance, No pedal edema Neurologic/Psychiatric: positive: Oriented x3, CN's nml (2-12), Motor nml, Sensation nml, Mood/affect nml DISCHARGE INSTRUCTIONS AND FOLLOWUP 1. Diet. Please continue to eat a cardiac heart healthy diet. 2. Activity as tolerated. Please continue with outpatient physical therapy as recommended. Please see your primary care provider for further recommendations and for referral. 3. Followup. Please see your primary care provider within 1-2 days status post discharge. Please follow up in the [facility] clinic as scheduled. Laboratory data has been given to you for this morning's laboratory workup. 4. STATUS: The patient was to remain a FULL CODE STATUS. Both the patient's son and daughter were to take him home and to his appointment this afternoon. The patient verbally understood the instructions that were given to him, along with prescription for magnesium. The patient verbally understood he is to return to the ER for worsening symptoms and call 911 for shortness of breath or chest pain. Time spent on discharge planning, assessment, evaluation was 40 minutes. JOB #: [id number] EXT JOB #:[id number] MACY
[2017-01-31] MEDS ORDERED: FUROSEMIDE 20 MG/2 ML VIAL IVP SCH (22:00)
== END 2017-01-31 12:45 | disposition home or self-care (01) | DRG 812 ==
LOC: EDUNIT# → ED 13:12 → OBS 16:49 → OBSVTOIN 16:55 → MS2 17:13
PROVIDERS: ADMIT Nurse Practitioner; ATTEND Nurse Practitioner
PROC: 30243N1 Transfusion of Nonautologous Red Blood Cells into Central Vein, Percutaneous Approach (ICD-10-PCS; principal; 2017-01-29)
DX: D62 Acute posthemorrhagic anemia (principal); Z68.41 Body mass index [BMI] 40.0-44.9, adult; E87.1 Hypo-osmolality and hyponatremia; D46.9 Myelodysplastic syndrome, unspecified; E83.42 Hypomagnesemia; S01.21XA Laceration without foreign body of nose, initial encounter; W18.30XA Fall on same level, unspecified, initial encounter; Y92.009 Unspecified place in unspecified non-institutional (private) residence as the place of occurrence of the external cause; S20.211A Contusion of right front wall of thorax, initial encounter; E86.0 Dehydration; T50.1X5A Adverse effect of loop [high-ceiling] diuretics, initial encounter; I95.1 Orthostatic hypotension; G47.33 Obstructive sleep apnea (adult) (pediatric); I15.9 Secondary hypertension, unspecified; I48.91 Unspecified atrial fibrillation; E66.01 Morbid (severe) obesity due to excess calories; K21.9 Gastro-esophageal reflux disease without esophagitis; F41.9 Anxiety disorder, unspecified; F43.12 Post-traumatic stress disorder, chronic; H40.9 Unspecified glaucoma; M19.90 Unspecified osteoarthritis, unspecified site; M54.9 Dorsalgia, unspecified; G89.29 Other chronic pain; Z79.899 Other long term (current) drug therapy; Z79.2 Long term (current) use of antibiotics; Z79.52 Long term (current) use of systemic steroids; Z91.81 History of falling; Z95.828 Presence of other vascular implants and grafts; Z87.891 Personal history of nicotine dependence; Z99.81 Dependence on supplemental oxygen
CPT/HCPCS: 36415; 70486; 71020; 80053; 81001; 81003; 83615; 83690; 83735; 84100; 85025; 86850; 86900; 86901; 86902; 86922; 87040; 87070; 87086; 87205; 93005; 94640; 99281; 99283; 99284

== ENCOUNTER 2017-02-20 20:00 | Outpatient (CLI) | payer OTHER | END 2017-02-20 20:01 | disposition short-term general hospital (02) | LOC: EMS 20:00 | PROVIDERS: ATTEND Surgery | DX: R41.82 Altered mental status, unspecified (principal) | CPT/HCPCS: A0425; A0427 ==

== ENCOUNTER 2017-03-26 08:00 | Outpatient (CLI) | payer OTHER ==
[2017-03-26 12:44] LABS: HCT - HEMATOCRIT 21.3 % (42.0-52.0); HGB - HEMOGLOBIN 7.2 g/dL (14.0-18.0); LYMPHOCYTES % (AUTO) 21.8 %; MEAN CORPUSCULAR HEMOGLOBIN 29.8 pg (27.0-31.0); MEAN CORPUSCULAR HGB CONC 33.8 g/dL (32.0-36.0); MEAN CORPUSCULAR VOLUME 88.3 fL (80.0-94.0); MEAN PLATELET VOLUME 9.1 fL (7.4-11.4); MONOCYTES % (AUTO) 77.2 %; RED BLOOD COUNT 2.41 10^6/uL (4.70-6.10); RED CELL DISTRIBUTION WIDTH 14.7 % (12.0-15.0); UNCORRECTED WHITE BLOOD COUNT 15.4 x10^3/uL; WHITE BLOOD COUNT 15.4 x10^3/uL (4.8-10.8)
[2017-03-26 13:34] LABS: BAND NEUTROPHILS % (MANUAL) 0 %
[2017-03-26 13:49] LABS: NEUTROPHILS % (MANUAL) 1 %; TOTAL CELLS COUNTED 100
[2017-03-26 13:54] LABS: LYMPHOCYTES % (MANUAL) 17 %
[2017-03-26 13:58] LABS: NP AUTO DIFFERENTIAL? YES; NP MAN DIFFERENTIAL? NO
== END 2017-03-26 08:01 | disposition home or self-care (01) ==
LOC: LAB.R 08:00
PROVIDERS: ATTEND Orthopaedic Surgery
DX: D46.9 Myelodysplastic syndrome, unspecified (principal); D70.3 Neutropenia due to infection
CPT/HCPCS: 85025

== ENCOUNTER 2017-03-27 08:37 | Outpatient (CLI) | payer OTHER | END 2017-03-27 08:38 | disposition EMS.NT | LOC: EMS 08:37 | PROVIDERS: ATTEND Surgery ==